=== PATIENT | male | born 1940 | race Caucasian/White ===

== ENCOUNTER → 2017-06-06 | Outpatient (CLI) | payer MEDICARE, OTHER ==
[~2017-06-06] MED LIST: ASPIR 8181 MG PO; BENADRYL25 MG PO; BETA-VAL 0.1% O45 GM TOP; BETAMETHASONE; BUPROPION; CITRIZINE PO; COUMADIN7.5 MG PO; DILAUDID 4 MG TA4 M1 PO; DOLOPHINE HCL10 MG PO; EYE VITAMINS; KETACONAZOLE PO; LAXATIVE5 M1 PO; LEVOTHYROXIN0.125 M1 PO; LISINOPRIL10 MG PO; METHADONE HCL 110 M1 PO; METHADONE HCL5 MG PO; MORPHINE SULFAT15 M3 PO; MOVANTIK25 MG PO; MS CONTIN60 MG PO; MUCOSA400 MG PO; MULTIVITAMINS PO; NIZORAL PO; ORAMORPH SR15 M1; PRINIVIL5 MG PO; PROVENTIL HFA6.7 G1 INH; STOOL SOFTENER1 EAC2 PO; SYNTHROID112 MCG PO; VENTOLIN HFA 1818 GM INH; VOLTAREN GEL 1100 G1 TOP; VOLTAREN GEL 1100 G2 TOP; WELLBUTRIN XL150 M1 PO; XARELTO15 MG PO; XARELTO20 MG PO; prinivil PO
--- NOTE | 2017-06-08 08:15 | PAINCON ---
[facility] [address] [place] [address] PAIN MANAGEMENT CONSULTATION Name: SLATERCALVIN Lenard Room: [facility] NELL Mclain#: [id number] Admission: 06/06/17 Attend Phys: Nathaniel Baugh Discharge: Date of : 38 Report #: [id number] THIS REPORT FOR: //name// CC: Quentin Samayoa HISTORY OF PRESENT ILLNESS: The patient is a 77-year-old gentleman being treated for cervical radiculopathy. He has chronic pain syndrome requiring high risk complex medication management. Last seen approximately 2 months ago, stable on baseline medication including methadone 10 mg t.i.d.; morphine IR 15 mg q. 4 hours, limit 60 tablets for 30 days. He returns to pain clinic today noting he is having trouble losing weight. We did strongly encourage increased physical activity. He feels he is 60 pounds overweight, which is about correct. He is 5 feet 9 inches, 265 pounds, BMI is elevated at 39.2 kilograms per meter squared. He does not use tobacco products. He notes chronic axial back pain remains problematic; pain in hips, knees and ankles. He does have a treadmill at home and again we talked about increasing activity. Suggest he start slow, 5 or 10 minutes twice a day, increasing to a target of 20-30 minutes twice a day. I talked about increasing fluid and decreasing caloric intake. We reviewed the fact that opiate medications are being used to provide analgesia adequate to support activities of daily living, not attempting to achieve a specific pain score on the 0-10 Visual Analog Scale. The current opiate medications are providing sufficient analgesia to allow the patient to participate in activities of daily living. The patient is not exhibiting any aberrant behavior suggestive of drug diversion. The patient is not having any adverse reactions to medications. The patient is not suffering from daytime somnolence or mental acuity changes. The patient is managing opiate-induced constipation with appropriate mfvw-vdj-giupqnc agents and dietary considerations. The patient was counseled on concern for caution with operating a motor vehicle while using opiate medications. A physical exam was performed and the patient's functional status was evaluated. All patients with back pain were advised against the bed rest greater than 4 days and were advised to return to normal activities. Pain score assessment was noted and the treatment plan was reviewed with the patient. All current medications, both prescribed and OTC were reviewed and reconciled on the electronic medical record. Tobacco screening was accomplished and smoking cessation was advised when indicated. BMI was noted and diet/exercise modification was recommended for all patients following outside normal parameters. I reviewed with the patient today their responsibilities to safeguard prescription medications, reviewed their responsibility to utilize medications only as prescribed by the physician. They are to seek and receive pain medications only from 1 physician group ( [facility]). They are to use 1 pharmacy and keep the clinic informed if [place] [address] PAIN MANAGEMENT CONSULTATION Name: CALVIN SLATER V Room: [facility] Mclain#: [id number] Admission: 06/06/17 Attend Phys: Nathaniel Baugh Discharge: Date of : 38 Report #: [id number] responsibilities include making followup visits in a timely fashion and to avoid abrupt discontinuation of medication usage. Their responsibilities further include bringing their medications (bottles from the pharmacy with residual pills) to the visit for possible confirmation of pill counts and the patient understands it is their responsibility to submit to random drug screens to ensure both that the medications prescribed are present, and that no other controlled substances are present. All prescriptions provided today were generated electronically. PHYSICAL EXAMINATION: As noted. Moderately obese gentleman, BMI is 39 kilograms per meter squared. Blood pressure 138/92, pulse 93, respirations 16. Alert and oriented to person, place and time and judged to be a reasonable historian. Rises from chair using armrest. Diffuse axial tenderness in the joints. No discrete palpable edema noted over the knees. Range of motion is slightly limited, modestly antalgic gait, appears to have good balance. ASSESSMENT: Chronic cervical and lumbar radiculopathy, axial back pain requiring high risk complex medication management, stable on baseline medications. RECOMMENDATION: Continue methadone 10 mg t.i.d. and morphine IR 15 mg, limit 60 tablets for 30 days. <ELECTRONICALLY SIGNED> By: Tye Samayoa DO 06/08/17 0815 0837 [facility] Center[facility]ye Samay[facility] DO /nt
== END ==
LOC: M.PC 02:05
DX: G89.4 Chronic pain syndrome (principal); M54.12 Radiculopathy, cervical region; M54.16 Radiculopathy, lumbar region; M54.89 Other dorsalgia; Z79.899 Other long term (current) drug therapy

== ENCOUNTER → 2017-07-04 | Outpatient (CLI) | payer MEDICARE, OTHER ==
--- NOTE | 2017-07-09 07:21 | PAINCON ---
[facility] [address] [place] [address] PAIN MANAGEMENT CONSULTATION Name: CALVIN SLATER V Room: [facility] NELL Mclain#: [id number] Admission: 07/04/17 Attend Phys: Nathaniel Baugh Discharge: Date of : 38 Report #: [id number] THIS REPORT FOR: //name// CC: Quentin Samayoa The patient is a pleasant 77-year-old gentleman being treated for cervical radiculopathy, axial back pain, chronic pain syndrome requiring high risk complex medication management. The patient is moderately obese, BMI of 39.2 kilograms per meter squared (5 feet 9 inches, 263 pounds). Last seen in the pain clinic on 06/06/2017, continued on methadone 10 mg t.i.d. and MSIR 15 mg half to one tablet b.i.d., limit 60 tablets for 30 days. We talked about weight loss at that time. Returns to pain clinic today noting he has increased activity some. He is using his treadmill nearly daily about 15 minutes a day. He does have some "sore and aching" legs and back after this activity. We talked about possibly using an Aleve tzbv-zqh-uadmowl 30 minutes prior to exercise. Otherwise, the patient notes medications are providing sufficient analgesia to participate in activities of daily living. We did today review his opiate consent to treat contract, it has been greater than a year. Physical exam is otherwise unchanged. Blood pressure is 135/96, pulse 98, respirations are 20. Subjective pain score is 5 on a VAS. He does not use tobacco products. He has not fallen in the last 3 months. Again, moderately obese with cervical radicular symptoms and axial back pain. Gait is guarded, but tandem. Diffuse low back pain. Cervical range of motion is moderately limited. No dramatic cervical radicular symptoms noted at this time. We reviewed the fact that opiate medications are being used to provide analgesia adequate to support activities of daily living, not attempting to achieve a specific pain score on the 0-10 Visual Analog Scale. The current opiate medications are providing sufficient analgesia to allow the patient to participate in activities of daily living. The patient is not exhibiting any aberrant behavior suggestive of drug diversion. The patient is not having any adverse reactions to medications. The patient is not suffering from daytime somnolence or mental acuity changes. The patient is managing opiate-induced constipation with appropriate irme-nds-rjkbrrt agents and dietary considerations. The patient was counseled on concern for caution with operating a motor vehicle while using opiate medications. A physical exam was performed and the patient's functional status was evaluated. All patients with back pain were advised against the bed rest greater than 4 days and were advised to return to normal activities. Pain score assessment was noted and the treatment plan was reviewed with the patient. All current medications, both prescribed and OTC were reviewed [place] [address] PAIN MANAGEMENT CONSULTATION Name: CALVIN SLATER V Room: [facility] NELL Mclain#: [id number] Admission: 07/04/17 Attend Phys: Nathaniel Baugh Discharge: Date of : 38 Report #: [id number] electronic medical record. Tobacco screening was accomplished and smoking cessation was advised when indicated. BMI was noted and diet/exercise modification was recommended for all patients following outside normal parameters. I reviewed with the patient today their responsibilities to safeguard prescription medications, reviewed their responsibility to utilize medications only as prescribed by the physician. They are to seek and receive pain medications only from 1 physician group ( [facility]). They are to use 1 pharmacy and keep the clinic informed if they change pharmacies. Their responsibilities include making followup visits in a timely fashion and to avoid abrupt discontinuation of medication usage. Their responsibilities further include bringing their medications (bottles from the pharmacy with residual pills) to the visit for possible confirmation of pill counts and the patient understands it is their responsibility to submit to random drug screens to ensure both that the medications prescribed are present, and that no other controlled substances are present. All prescriptions provided today were generated electronically. ASSESSMENT: Cervical radiculopathy, axial back pain, chronic pain syndrome requiring high risk complex medication management, stable on baseline medication. RECOMMENDATION: Continue methadone 10 mg t.i.d. and MSIR 15 mg half to one tablet b.i.d., limit 60 tablets for 30 days. Opiate consent to treat contract signed today. Discharged in good and stable condition. <ELECTRONICALLY SIGNED> By: Tye Samayoa DO 07/09/17 0721 1450 [id number] Samayoa DO /nt
== END ==
LOC: M.PC 01:40
DX: M54.12 Radiculopathy, cervical region (principal); G89.4 Chronic pain syndrome; M54.89 Other dorsalgia

== ENCOUNTER → 2017-08-01 | Outpatient (CLI) | payer MEDICARE, OTHER ==
--- NOTE | 2017-08-03 07:28 | PAINCON ---
[facility] [address] [place] [address] PAIN MANAGEMENT CONSULTATION Name: CALVIN SLATER V [facility] [id number] Admission: 08/01/17 Attend Phys: Nathaniel Baugh Discharge: Date of : 38 Report #: [id number] THIS REPORT FOR: //name// CC: Quentin Samayoa The patient is a 77-year-old gentleman being treated for axial back pain, cervical radiculopathy and chronic pain syndrome, requiring complex medication management. Last seen in pain clinic on 07/04/2017. He had continued on methadone 10 mg t.i.d. and MSIR 15 mg half to one tablet b.i.d. as needed for pain, limit 60 tablets for 30 days. The patient returns to pain clinic today noting medications are generally providing sufficient analgesia to participate in activities of daily living. He rates his pain anywhere from a 3-7 on a VAS. He notes the pain is primarily generalized back, exacerbated with physical activity. We had trialed Voltaren gel at last visit and this seems to work well, but only for "a few hours." PHYSICAL EXAMINATION: Otherwise unchanged, 5 feet 9 inches, 264 pounds gentleman, BMI is 39.5 kilograms per meter squared. Blood pressure 120/81, pulse 101, respirations 16. Rises from chair using armrest. Diffuse tenderness in the low back. Gait is tandem. Lower extremity strength is diminished, but symmetric. Straight leg raise is negative. The patient does note some problems with constipation, which seems to be getting worse. He has been diligent with stool softeners; appropriate diet with bulk and fluids. We reviewed the fact that opiate medications are being used to provide analgesia adequate to support activities of daily living, not attempting to achieve a specific pain score on the 0-10 Visual Analog Scale. The current opiate medications are providing sufficient analgesia to allow the patient to participate in activities of daily living. The patient is not exhibiting any aberrant behavior suggestive of drug diversion. The patient is not having any adverse reactions to medications. The patient is not suffering from daytime somnolence or mental acuity changes. The patient is managing opiate-induced constipation with appropriate xbrm-zrf-klcxgtk agents and dietary considerations. The patient was counseled on concern for caution with operating a motor vehicle while using opiate medications. A physical exam was performed and the patient's functional status was evaluated. All patients with back pain were advised against the bed rest greater than 4 days and were advised to return to normal activities. Pain score assessment was noted and the treatment plan was reviewed with the patient. All current medications, both prescribed and OTC were reviewed and reconciled on the electronic medical record. Tobacco screening was accomplished and smoking cessation was advised when indicated. BMI was noted and diet/[place] [address] PAIN MANAGEMENT CONSULTATION Name: CALVIN SLATER V [facility] [id number] Admission: 08/01/17 Attend Phys: Nathaniel Baugh Discharge: Date of : 38 Report #: [id number] modification was recommended for all patients following outside normal parameters. I reviewed with the patient today their responsibilities to safeguard prescription medications, reviewed their responsibility to utilize medications only as prescribed by the physician. They are to seek and receive pain medications only from 1 physician group ( [facility]). They are to use 1 pharmacy and keep the clinic informed if they change pharmacies. Their responsibilities include making followup visits in a timely fashion and to avoid abrupt discontinuation of medication usage. Their responsibilities further include bringing their medications (bottles from the pharmacy with residual pills) to the visit for possible confirmation of pill counts and the patient understands it is their responsibility to submit to random drug screens to ensure both that the medications prescribed are present, and that no other controlled substances are present. All prescriptions provided today were generated electronically. ASSESSMENT: Symptomatic axial back pain, cervical radiculopathy by history, chronic pain syndrome, requiring complex medication management with a component of opiate-induced constipation. RECOMMENDATIONS: Continue methadone 10 mg t.i.d.; MSIR 15 mg, limit 60 tablets for 30 days, one half to one tablet b.i.d. for breakthrough pain. Lastly, the patient was given samples of Movantik and a prescription for 25 mg tablets to be used p.r.n. OIC. Follow up in 2 months for reevaluation. <ELECTRONICALLY SIGNED> By: Tye Samayoa DO 08/03/17 0728 1219 [id number] Samayoa DO /nt
== END ==
LOC: M.PC 03:36
DX: M54.12 Radiculopathy, cervical region (principal); G89.4 Chronic pain syndrome; K59.03 Drug induced constipation; Z79.899 Other long term (current) drug therapy

== ENCOUNTER → 2017-08-29 | Outpatient (CLI) | payer MEDICARE, OTHER ==
--- NOTE | 2017-08-31 09:51 | PAINCON ---
[facility] [address] [place] [address] PAIN MANAGEMENT CONSULTATION Name: CALVIN SLATER V [id number] Admission: 08/29/17 Attend Phys: Nathaniel Baugh Discharge: Date of : 38 Report #: [id number] THIS REPORT FOR: //name// CC: Quentin Samayoa The patient is a very pleasant 77-year-old gentleman typically treated for cervical radiculopathy, axial back pain, chronic pain syndrome requiring complex medication management. Component of opiate-induced constipation. Last seen in pain clinic 08/01/2017. Continued on methadone 10 mg t.i.d., MS-IR 15 mg one-half tablet up to 4 times a day. The patient was having some opiate-induced constipation at last visit, we gave him samples of Movantik. He returns to clinic today noting he is actually doing fairly well. He rates his pain quite low today. Chronic axial back pain is better than it has been for some time, though he does note with weather changes, the pain does get a little bit worse. Incidentally, he has some right shoulder pain that is fairly nominal. He does note that the Movantik while efficacious, caused some increasing abdominal cramping and noted that the results were fairly rigorous. He stated he had to be near a toilet the entire next day. He states he is managing his OIC now simply with MiraLax, stool softeners, fluid and fiber. PHYSICAL EXAMINATION: Shows a 77-year-old gentleman, BMI is 39.6 kilograms per meter squared. Blood pressure 158/81, pulse 96, respirations are 16, oxygen saturation is somewhat diminished at 93%. Rises from the chair using armrest. Gait is tandem, a little diffuse tenderness across the low back with pain, subjective pain score is only 1/10. He does have a little subjective pain in the right shoulder, although range of motion strength is good. Lower extremity strength is preserved. We reviewed the fact that opiate medications are being used to provide analgesia adequate to support activities of daily living, not attempting to achieve a specific pain score on the 0-10 Visual Analog Scale. The current opiate medications are providing sufficient analgesia to allow the patient to participate in activities of daily living. The patient is not exhibiting any aberrant behavior suggestive of drug diversion. The patient is not having any adverse reactions to medications. The patient is not suffering from daytime somnolence or mental acuity changes. The patient is managing opiate-induced constipation with appropriate spgf-nmz-niqzato agents and dietary considerations. The patient was counseled on concern for caution with operating a motor vehicle while using opiate medications. A physical exam was performed and the patient's functional status was evaluated. All patients with back pain were advised against the bed rest greater than 4 days and were advised to return to normal activities. Pain score assessment was noted and the treatment plan was reviewed with the patient. All current medications, both prescribed and OTC were reviewed and reconciled on the electronic medical record. Tobacco screening was accomplished and smoking cessation was advised when indicated. BMI was noted and diet/exercise [facility] [address] [place] [address] PAIN MANAGEMENT CONSULTATION Name: SLATERCALVIN Lenard Room: [facility] NELL Mclain#: [id number] Admission: 08/29/17 Attend Phys: Nathaniel Baugh Discharge: Date of : 38 Report #: [id number] modification was recommended for all patients following outside normal parameters. I reviewed with the patient today their responsibilities to safeguard prescription medications, reviewed their responsibility to utilize medications only as prescribed by the physician. They are to seek and receive pain medications only from 1 physician group ( [facility]). They are to use 1 pharmacy and keep the clinic informed if they change pharmacies. Their responsibilities include making followup visits in a timely fashion and to avoid abrupt discontinuation of medication usage. Their responsibilities further include bringing their medications (bottles from the pharmacy with residual pills) to the visit for possible confirmation of pill counts and the patient understands it is their responsibility to submit to random drug screens to ensure both that the medications prescribed are present, and that no other controlled substances are present. All prescriptions provided today were generated electronically. ASSESSMENT: Cervical radiculopathy by history, axial back pain, chronic pain syndrome requiring complex medication management, stable on baseline medication. RECOMMENDATION: We will renew methadone 10 mg t.i.d., MS-IR 15 mg one-half tablet 4 times a day, limit 60 tablets for 30 days. Follow up in 30 days for reevaluation. <ELECTRONICALLY SIGNED> By: Tye Samayoa DO 08/31/17 0951 1515 [id number] Samayoa DO /nt
== END ==
LOC: M.PC 02:30
DX: M54.12 Radiculopathy, cervical region (principal); M54.5 Low back pain; G89.4 Chronic pain syndrome; Z79.899 Other long term (current) drug therapy

== ENCOUNTER → 2017-09-26 | Outpatient (CLI) | payer MEDICARE, OTHER ==
--- NOTE | 2017-09-27 09:37 | PAINCON ---
[facility] [address] [place] [address] PAIN MANAGEMENT CONSULTATION Name: CALVIN SLATER V Room: [facility] Chemo#: [id number] Admission: 09/26/17 Attend Phys: Nathanile Baugh Discharge: Date of : 38 Report #: [id number] THIS REPORT FOR: //name// CC: Quentin Samayoa DATE OF SERVICE: 09/26/2017 The patient is a very pleasant 77-year-old gentleman whose care I took over from Dr. Fernández in June 2016. The patient has been stable on baseline medication including methadone 10 mg t.i.d. and MSIR 15 mg prior 3 and now down to 2 a day. We have tried Movantik for opiate-induced constipation and diclofenac sodium gel for topical arthritic concerns. The patient has symptomatic cervical radiculopathy, DJD, osteoarthritis affecting hips and knees, chronic pain syndrome requiring complex medication management. Comorbidities include hypertension and DVT, on Xarelto. Last visit, 08/29/2017 continued the patient on baseline medications. The patient returns today noting subjective pain score, is 1 on a VAS. He did take a fall 2 weeks ago. He was carrying plastic chair, he slipped in some grass and the chair did hit him in the right ribs. He did not see the ER. PHYSICAL EXAMINATION: Today shows 5 feet 9 inches, 259 pounds gentleman, BMI is elevated at 38.4 kilograms per meter squared. Room air oxygen saturation is 96%, respirations 16, blood pressure is 130/79, pulse 99. Cranial nerves 2-12 are grossly intact. He is alert and oriented to person, place and time, judged to be a reasonable historian. Some mild tenderness over the right ribs, though AP compression and lateral compression does not exacerbate significant pain. Hence, I am less concerned about occult rib fracture. Rises from chair using armrest, tenderness in his hips and knees. Modestly antalgic gait. Lumbar flexion is limited. Lower extremity strength is generally preserved. We reviewed the fact that opiate medications are being used to provide analgesia adequate to support activities of daily living, not attempting to achieve a specific pain score on the 0-10 Visual Analog Scale. The current opiate medications are providing sufficient analgesia to allow the patient to participate in activities of daily living. The patient is not exhibiting any aberrant behavior suggestive of drug diversion. The patient is not having any adverse reactions to medications. The patient is not suffering from daytime somnolence or mental acuity changes. The patient is managing opiate-induced constipation with appropriate [id number] agents and dietary considerations. The patient was counseled on concern for caution with operating a motor vehicle while using opiate medications. A physical exam was performed and the patient's functional status was evaluated. All patients with back pain were advised against the bed rest greater than [address] [place] [address] PAIN MANAGEMENT CONSULTATION Name: BRYONCALVIN Weinberg Room: [facility]#: [id number] Admission: 09/26/17 Attend Phys: Nathaniel Baugh Discharge: Date of : 38 Report #: [id number] days and were advised to return to normal activities. Pain score assessment was noted and the treatment plan was reviewed with the patient. All current medications, both prescribed and OTC were reviewed and reconciled on the electronic medical record. Tobacco screening was accomplished and smoking cessation was advised when indicated. BMI was noted and diet/exercise modification was recommended for all patients following outside normal parameters. I reviewed with the patient today their responsibilities to safeguard prescription medications, reviewed their responsibility to utilize medications only as prescribed by the physician. They are to seek and receive pain medications only from 1 physician group ( [facility]). They are to use 1 pharmacy and keep the clinic informed if they change pharmacies. Their responsibilities include making followup visits in a timely fashion and to avoid abrupt discontinuation of medication usage. Their responsibilities further include bringing their medications (bottles from the pharmacy with residual pills) to the visit for possible confirmation of pill counts and the patient understands it is their responsibility to submit to random drug screens to ensure both that the medications prescribed are present, and that no other controlled substances are present. All prescriptions provided today were generated electronically. ASSESSMENT: Axial back pain, osteoarthritis affecting hips and knees, chronic pain requiring complex medication management, stable on baseline medication. RECOMMENDATION: Continue MSIR 15 mg 1/2-1 tablet b.i.d., limit #60 tablets for 30 days, continue methadone 10 mg t.i.d. for basal analgesia, Voltaren gel topically, Movantik for OIC. Follow up in 1 month. On reviewing the patient's chart, I note there is no recent random drug screen. We will endeavor to get a buccal swab at next visit. Certainly, no aberrant behaviors suggestive for drug diversion, simply complying with our opiate consent to treat contract. <ELECTRONICALLY SIGNED> By: Tye Samayoa DO 09/27/17 0937 [id number] Samayoa DO /nt
== END ==
LOC: M.PC 04:40
DX: M17.0 Bilateral primary osteoarthritis of knee (principal); M19.042 Primary osteoarthritis, left hand; M19.041 Primary osteoarthritis, right hand; G89.29 Other chronic pain; M54.9 Dorsalgia, unspecified; Z79.899 Other long term (current) drug therapy

== ENCOUNTER → 2017-11-21 | Outpatient (CLI) | payer MEDICARE, OTHER ==
--- NOTE | 2017-11-22 07:56 | PAINCON ---
[facility] [address] [place] [address] PAIN MANAGEMENT CONSULTATION Name: SLATERCALVIN Lenard Room: [facility] Chemo#: [id number] Admission: 11/21/17 Attend Phys: Nathaniel Baugh Discharge: Date of : 38 Report #: [id number] THIS REPORT FOR: //name// CC: Quentin Samayoa DATE OF SERVICE: 11/21/2017 The patient is a very pleasant 77-year-old gentleman being treated for cervical radiculopathy, component of DJD, arthritis affecting hips and knees requiring complex medication management. He has been stable for quite some time on methadone 10 mg t.i.d., MSIR 15 mg b.i.d. Equates to approximately 150 mg morphine equivalent. We talked about weaning over time. He has been again remarkably stable on these medications. No problems with daytime somnolence, mental acuity changes or constipation. Rates pain at 2 on a VAS. Reviewing the chart, I noticed there was no random drug screens. We did get a buccal swab today. The patient does chew tobacco products. The test should be positive for methadone, morphine, a tablet along with nicotine. He was counseled regarding smoking cessation. I strongly encouraged to continue physical activity. With generalized joint pain, his functional status is modestly limited. PHYSICAL EXAMINATION: He is a little obese at 5 feet 9 inches, 256 pounds, BMI is 38.1 kilograms per meter squared. Blood pressure 113/84, pulse 92, respirations 18. Alert and oriented to person, place and time, judged to be a reasonable historian. Rises from chair using the armrest, modestly antalgic gait, though gait is tandem and nonataxic. ASSESSMENT: Chronic axial back pain, osteoarthritis affecting hips and knees requiring complex medication management. RECOMMENDATION: Continue methadone 10 mg, typically uses 1 in the morning, 1/2 in the afternoon and 1-1/2 at bedtime. Encourage him to try and decrease to 1/2 tablet at bedtime if able. Continue morphine 15 mg max of 2 a day for breakthrough pain. Continue Movantik 25 mg on a p.r.n. basis for opiate-induced constipation. The patient notes that he uses on a daily basis. He has somewhat liquid stools. Follow up in 2 months for reevaluation. <ELECTRONICALLY SIGNED> By: Tye Samayoa DO 11/22/17 0756 1303 1939Tye Samayoa DO /nt
== END ==
LOC: M.PC 04:15
DX: M54.5 Low back pain (principal); M13.852 Other specified arthritis, left hip; M13.851 Other specified arthritis, right hip; M13.862 Other specified arthritis, left knee; M13.861 Other specified arthritis, right knee; G89.29 Other chronic pain; Z79.899 Other long term (current) drug therapy

== ENCOUNTER → 2018-01-17 | Outpatient (CLI) | payer MEDICARE, OTHER ==
--- NOTE | 2018-02-08 17:38 | PAINCON ---
[address] [address] PAIN MANAGEMENT CONSULTATION Name: BRYONCALVIN Lenard Room: [facility] NELL Mclain#: [id number] Admission: 01/17/18 Attend Phys: Alexia Thomas MD Discharge: Date of : 38 Report #: [id number] THIS REPORT FOR: //name// CC: Quentin Thomas DATE OF SERVICE: 01/17/2018 CHIEF COMPLAINT: Generalized joint pain. FOLLOWUP HISTORY: The patient is a 77-year-old gentleman who has returned to the Pain Clinic today. He has had pain for a number of years. He has seen a number of doctors in the Pain Clinic. He was seen by Dr. Shorty Fernández in the past as well as Dr. Tye Samayoa. This is my first visit with the patient. He is complaining of pain and discomfort in his right hand. He feels like it is more swollen and painful. Pain continues to increase in his left hip as well as in his ankle. He has returned to the Pain Clinic for renewal of his medications. Finds that methadone and morphine are helpful. He is a very pleasant 77-year-old gentleman who has been treated for cervical radiculopathy, degenerative joint disease, arthritis affecting his hips and knees, which have required complex medical management. He has been able to do quite well for some time on methadone 10 mg as well as morphine. He has been remarkably stable on his current medical regimen. He does not have any problems with daytime somnolence. Mental acuity remains good. He feels that he is not having significant bowel or bladder problems with the use of his medications. ALLERGIES: No known drug allergies. CURRENT MEDICATIONS: Albuterol 2 puffs q.i.d., aspirin 81 mg, laxative bisacodyl, Voltaren gel 1% to upper extremities 1 inch to hands as directed, Benadryl 25 mg at bedtime, Synthroid 0.125 mg, lisinopril 10 mg, methadone 10 mg 1 tablet a.m., 1/2 tablet afternoon and 1 tablet at bedtime, morphine 15 mg IR for severe breakthrough pain only, Movantik 25 mg, Sennosides/Docusate. PAST MEDICAL HISTORY: Hypertension, hypothyroidism, joint disease/arthritis. PAST SURGICAL HISTORY: Appendectomy in 2011, tonsillectomy in 1956, left knee replacement in 1999. SOCIAL HISTORY: He has been retired since 1998. REVIEW OF SYSTEMS: Ringing in the ears, hearing loss, gets up to urinate at night, joint pain, joint stiffness, weakness of joints, back pain, rash, itching, skin color changes, varicose veins, and depression. LABORATORY DATA: No new laboratory values at the time [place] [address] PAIN MANAGEMENT CONSULTATION Name: CALVIN SLATER V Room: [facility]#: [id number] Admission: 01/17/18 Attend Phys: Alexia Thomas MD Discharge: Date of : 38 Report #: [id number] of the knees dated 10/23/2013, there is a left total knee arthroplasty with anatomical alignment. No fractures, dislocations or findings to suggest hardware loosening. MRI of the cervical spine dated 06/2011. IMPRESSION: Cervical spondylosis with posterior ridging and stenosis with neural foraminal narrowing at multiple levels. AP diameter of the canal is moderately narrowed at C6-C7. A 9.4 mm asymmetric ridging is seen with neural foraminal narrowing, greater on the right at C3-C4. PAIN CLINIC ASSESSMENT: 1. History of osteoarthritis in the left knee with arthroplasty. 2. Height 5 feet 9, weight 256 pounds, BMI is 37.9. 3. Vital signs: Blood pressure 133/90, heart rate 91, respiratory rate 18, room air saturation 93%, temperature 98.5. 5. Pain score 6/10, oftentimes is 2-3. 6. Fall risk. The patient has not fallen in the last 3 months. 7. Blood thinner. The patient is not on a blood thinning medication. 8. Hypertension. The patient is being treated for hypertension. 9. Opioid medicines greater than 6 weeks. The patient is receiving medications through the Pain Clinic for his pain control. 10. Risk assessment tool. 11. Functional assessment tool. 12. Recreational drug use. The patient denies use of recreational drugs. 13. Tobacco: The patient is not smoking. He does chew tobacco. 14. Alcohol: The patient denies frequent use of alcoholic beverages has left heel and left hip pain, some left knee discomfort. PHYSICAL EXAMINATION: GENERAL: The patient is a well-developed, well-nourished white male. Appears his stated age. He is alert and oriented x 3. Affect is appropriate. Speech is fluent. HEENT: Normocephalic, atraumatic. Extraocular eye muscles intact. The patient is wearing glasses. Sclerae nonicteric. Mucous membranes are moist. NECK: Without JVD or adenopathy. HEART: Regular. CHEST: Clear without rhonchi or rales. ABDOMEN: Nontender. EXTREMITIES: Upper extremity muscle strength is judged to be 4+/5 for the major muscle groups. Lower extremities muscle strength is judged to be 5- for the major muscle groups in the lower extremity. The patient has some pain and discomfort in his left heel as well as in the left hip. IMPRESSION: 1. Cervical radiculopathy. 2. Multilevel degenerative disk disease of the cervical spine with disk bulging causing significant multilevel central spinal stenosis and bilateral multilevel [facility] [address] [place] [address] PAIN MANAGEMENT CONSULTATION Name: BRYONCALVIN Lenard Room: [facility]#: [id number] Admission: 01/17/18 Attend Phys: Alexia Thomas MD Discharge: Date of : 38 Report #: [id number] recess and neural foraminal stenosis of the lumbar spine. 3. Multilevel degenerative facet osteoarthropathy of the cervical spine. 4. Hypothyroidism. 5. Eczema. 6. Degenerative osteoarthritis. 7. History of gout. 8. Remote shingles. 9. Status post left total knee replacement. RECOMMENDATIONS: We discussed treatment options with the patient. At this juncture, he has been doing reasonably well with his current medical regimen. We will continue with the regimen Dr. Samayoa has him on at this point. We will make adjustments in the future as needed. We would like to thank you for letting us participate in his care. We hope he continues to improve. <ELECTRONICALLY SIGNED> By: Alexia Thomas MD 02/08/18 1738 1547 [id number]. Piter Thomas MD /nt
== END ==
LOC: M.PC 05:00
DX: M47.22 Other spondylosis with radiculopathy, cervical region (principal); M50.123 Cervical disc disorder at C6-C7 level with radiculopathy; M48.02 Spinal stenosis, cervical region; E03.9 Hypothyroidism, unspecified; L30.9 Dermatitis, unspecified; B02.9 Zoster without complications; Z96.652 Presence of left artificial knee joint

== ENCOUNTER → 2018-03-14 | Outpatient (CLI) | payer MEDICARE, OTHER ==
--- NOTE | 2018-03-18 10:00 | PAINCON ---
[address] [address] PAIN MANAGEMENT CONSULTATION Name: SLATERCALVIN Lenard Room: [facility] NELL MartínezPrasad#: [id number] Admission: 03/14/18 Attend Phys: Alexia Thomas MD Discharge: Date of : 38 Report #: [id number] THIS REPORT FOR: //name// CC: Quentin Thomas DATE OF SERVICE: 03/14/2018 CHIEF COMPLAINT: Joint pain and cervical radicular pain. FOLLOWUP HISTORY: The patient is a 77-year-old gentleman who has been followed in the Pain Clinic. He has a history of pain and discomfort involving his right hand. Feels like his hand is swollen. Also, notes some increased pain in his hip and in his ankle. He finds that use of methadone and morphine have continued to be helpful. He has also been treated for cervical radiculopathy and degenerative joint disease. Notes pain and arthritis affecting his hips, knees and has been treated with complex medical management because of these problems. He has been stable on the medications. His mental acuity remains adequate. He finds that use of Voltaren gel on his hand can be beneficial. He has no specific pain, which is more problematic today and has a continued generalized body pain. Rates his pain as a 2/10. He feels that his medications of morphine, methadone, Voltaren and Movantik are been helpful. They provide him about 80% pain relief and he would like to continue with their use. ALLERGIES: No known drug allergies. MEDICATIONS: Albuterol 2 puffs q.i.d., aspirin 81 mg, laxative bisacodyl, Voltaren gel 1% to upper extremity 1 inch to hand as directed, Benadryl 25 mg at bedtime, Synthroid 0.125 mg, lisinopril 10 mg, methadone 10 mg a.m., one-half tablet afternoon and 1 tablet at bedtime, morphine 15 mg IR for severe breakthrough pain only. Movantik 25 mg, Sennosides/Docusate. PAIN CLINIC ASSESSMENT: 1. History of osteoarthritis in his left knee and arthroplasty. This patient has not been treated for rheumatoid arthritis. 2. Height 5 feet 9 inches, weight 258 pounds, BMI is 38.1. 3. Vital signs: Blood pressure 134/88, heart rate 91, respiratory rate 16, room air saturation 93%, temperature 98.4. 4. Pain intensity 07/14. 5. Fall risk. The patient has not fallen in the last 3 months. 6. Blood thinner. The patient is not on a blood thinning medication. 7. Hypertension. The patient is being treated for hypertension. 8. Opioid greater than 6 weeks. The patient receives this medication from one source, the Pain Clinic. 9. Risk assessment tool. 10. [place] [address] PAIN MANAGEMENT CONSULTATION Name: SLATERCALVIN Lenard Room: [facility]#: [id number] Admission: 03/14/18 Attend Phys: Alexia Thomas MD Discharge: Date of : 38 Report #: [id number] 11. Recreational drug use. The patient denies use of recreational drugs. 12. Tobacco: The patient is not smoking, but he does chew tobacco. We discussed the problems associated with tobacco use. He stopped smoking in 1981 and is continued with the smokeless tobacco. Does drink alcoholic beverages about once a week. PHYSICAL EXAMINATION: GENERAL: The patient is a well-developed, well-nourished white male. Appears his stated age. He is alert and oriented x 3. Affect is appropriate. Speech is fluent. HEENT: Normocephalic, atraumatic. Extraocular eye muscles intact. Sclerae nonicteric. Mucous membranes are moist. Hearing is generally within normal limits. NECK: Without adenopathy or JVD. HEART: Regular rate. S1, S2. LUNGS: Clear to auscultation without rhonchi or rales. ABDOMEN: Nontender. EXTREMITIES: Upper extremity muscle strength is judged to be 4/5 for the major muscle groups. Lower extremity muscle strength 5-/5 for the major muscle groups. The patient does have some pain and discomfort in his heels. He has pain and discomfort in his knees, ankles as well as in his ____. IMPRESSION: 1. History of cervical radiculopathy. Multilevel degenerative disk disease of the cervical spine with disk bulging causing significant multilevel central spinal stenosis and bilateral multilevel recesses and neural foraminal stenosis of the lumbar spine. 2. Multilevel degenerative facet arthropathy of the cervical spine. 3. Hypothyroidism. 4. Eczema. 5. Degenerative osteoarthritis. 6. History of gout. 7. Remote shingles. 8. Status post left total knee replacement. RECOMMENDATIONS: We discussed treatment options with the patient. At this juncture, he feels his medications morphine, methadone and Voltaren gel are helpful. We will renew these medications. A script for the medication has been written. The patient will call us if he has any problems with his medications. We would like to thank you for letting us participate in his care. We hope he continues to do well. He will call us if he has any concerns. <ELECTRONICALLY SIGNED> By: Alexia Thomas MD 03/18/18 1000 [id number]. Piter Thomas MD /iftikhar
== END ==
LOC: M.PC 05:17
DX: M54.12 Radiculopathy, cervical region (principal); E03.9 Hypothyroidism, unspecified; L30.9 Dermatitis, unspecified; M19.90 Unspecified osteoarthritis, unspecified site; M10.9 Gout, unspecified; B02.9 Zoster without complications; Z96.652 Presence of left artificial knee joint

== ENCOUNTER → 2018-05-09 | Outpatient (CLI) | payer MEDICARE, OTHER ==
--- NOTE | 2018-05-10 17:20 | PAINCON ---
[address] [address] PAIN MANAGEMENT CONSULTATION Name: CALVIN SLATER V Room: [facility] NE[facility] Mclain#: [id number] Admission: 05/09/18 Attend Phys: Alexia Thomas MD Discharge: Date of : 38 Report #: [id number] THIS REPORT FOR: //name// CC: Quentin Thomas DATE OF SERVICE: 05/09/2018 FOLLOWUP COMPLAINT: Generalized pain, pain is better. FOLLOWUP HISTORY: The patient is a 77-year-old gentleman who has been seen in the pain clinic because of cervical radiculopathy. He has a history of cervical pain and discomfort involving his right hand. Sometimes he notes that his hand has felt like it was swollen. He has also had some pain and discomfort in his hip as well as his ankle. He finds that use of methadone and morphine are beneficial. He feels that his situation remains reasonably stable. He does not have any problems with alteration of his sensorium. He feels that his medications leave him thinking clearly. Has used Voltaren and finds it is beneficial on his affected hand. He feels that his pain medications are continued to be working reasonably well. Rates his pain as a 1/10 at this point. Would like to continue with his methadone, morphine, and Voltaren and has found Movantik helpful with regards to constipation. ALLERGIES: No known drug allergies. MEDICATIONS: Albuterol 2 puffs q.i.d., aspirin 81 mg, laxative bisacodyl, Voltaren 1% gel to the upper extremity as directed, four times daily, Benadryl 25 mg at bedtime, Synthroid 0.125 mg, lisinopril 10 mg, methadone 10 mg q.a.m., one half tablet afternoon and 1 tablet at bedtime, morphine 15 mg IR for severe breakthrough pain only. Movantik 25 mg, and Sennosides/Docusate. PAIN CLINIC ASSESSMENT AND PQRS: 1. History of osteoarthritis in his left knee and has had an arthroplasty. The patient is not being treated for rheumatoid arthritis. 2. Height 5 feet 9 inches, weight 256 pounds, BMI is 38. 3. Vital signs: Blood pressure 140/100, heart rate 89, respiratory rate 18, room air saturation 92%, temperature 98.6. 4. Pain intensity 06/13. 5. Fall risk. The patient has not fallen in the last 3 months. 6. Blood thinner. The patient is not on a blood thinning medication. 7. Hypertension. The patient is being treated for hypertension. 8. Opioids greater than 6 weeks. The patient receives his medications from one source, pain clinic. 9. Risk assessment tool, low for opioids. 10. Functional assessment tool. 11. Recreational drug use. The patient [place] [address] PAIN MANAGEMENT CONSULTATION Name: CALVIN SLATER V Room: [facility]#: [id number] Admission: 05/09/18 Attend Phys: Alexia Thomas MD Discharge: Date of : 38 Report #: [id number] 12. Tobacco: The patient is not smoking. Does not chew tobacco. Discussed ____ chewing tobacco and its cessation. 13. Alcohol, the patient drinks alcohol beverage about once a week. PHYSICAL EXAMINATION: GENERAL: The patient is well-developed, well nourished male, who appears his stated age. He is alert and oriented x 3. His affect is appropriate. Speech is fluent. HEENT: Normocephalic, atraumatic. Extraocular eye muscles intact. Sclerae nonicteric. Mucous membranes are moist. Hearing is within normal limits. NECK: Without adenopathy or JVD. HEART: Regular rate. S1, S2. LUNGS: Clear to auscultation without rhonchi or rales. ABDOMEN: Nontender. Bowel sounds present. EXTREMITIES: Upper muscle strength judged to be 4/5 for the major muscle groups. The patient has some swelling in his right hand. Lower extremity muscle strength, 5-/5 for the major muscle groups. The patient has some pain and discomfort in his heel. Has some discomfort in his knees and ankles as well. IMPRESSION: 1. History of cervical radiculopathy - multilevel degenerative disk disease of the cervical spine with disk bulging causing significant multilevel central spinal stenosis and bilateral multilevel recesses and neural foraminal stenosis of the lumbar spine. 2. Multilevel degenerative facet arthropathy of the cervical spine. 3. Hypothyroidism. 4. Eczema. 5. Degenerative arthritis. 6. History of gout. 7. Remote shingles. 8. Status post left total knee replacement. RECOMMENDATIONS: We discussed treatment options with the patient. Overall, he feels things are going reasonably well. He is able to engage in activities that he would like to. States that he and his often go to the movies with tickets provided by their family member. Also, he likes to eat hamburgers at [employer]. Goes to other eating establishments. Overall things are going reasonably well. He would like to have his medications renewed. A script for MS Contin 15 mg 1 p.o. b.i.d. and methadone 10 mg 1 a.m., one half in noon and 1 in the evening have been written. The patient will call if he has any concerns. [facility] [address] [place] [address] PAIN MANAGEMENT CONSULTATION Name: CALVIN SLATER V Room: [facility] Mclain#: [id number] Admission: 05/09/18 Attend Phys: Alexia Thomas MD Discharge: Date of : 38 Report #: [id number] We would like to thank you for letting us participate in his care. We hope he continues to improve. <ELECTRONICALLY SIGNED> By: Alexia Thomas MD 05/10/18 1720 1606 [id number]. Piter Thomas MD /nt
== END ==
LOC: M.PC 04:41
DX: M50.10 Cervical disc disorder with radiculopathy, unspecified cervical region (principal); M48.02 Spinal stenosis, cervical region; M19.90 Unspecified osteoarthritis, unspecified site; E03.9 Hypothyroidism, unspecified; L30.9 Dermatitis, unspecified; B02.9 Zoster without complications; Z96.652 Presence of left artificial knee joint; Z87.39 Personal history of other diseases of the musculoskeletal system and connective tissue

== ENCOUNTER → 2018-07-04 | Outpatient (CLI) | payer MEDICARE, OTHER ==
--- NOTE | ~2018-07-04 | PAINCON ---
[address] [address] PAIN MANAGEMENT CONSULTATION Name: CALVIN SLATER V Room: [facility] Mclain#: [id number] Admission: 07/04/18 Attend Phys: Alexia Thomas MD Discharge: Date of : 38 Report #: [id number] THIS REPORT FOR: //name// CC: Quentin Thomas DATE OF SERVICE: 07/04/2018 FOLLOWUP HISTORY: The patient is an 78-year-old gentleman who has been followed in the pain clinic. As you recall, he has some problems involving his right shoulder. Has a history of cervical pain. In the past, he has undergone cervical epidural steroid injections and gleaned benefits from these. He has had some pain involving the right side. Noted that there had been some swelling in his joint. At this point, he feels that his right shoulder is doing relatively well. Temperature has been extremely cold outside, today is high was 7 degrees. He feels that the cold weather may have provided some benefit. He rates his pain as 0 at this time. Feels that the morphine, methadone continue to be beneficial. He would like to have his medications renewed. Does not have any problems with mentation. Keeps his medications in a guarded area. Has used Voltaren. I am not sure that it has been very beneficial in his upper shoulder. At this juncture, he does not feel he needs another refill because he has some medication at home. The patient has used stool softeners to help limit constipation. ALLERGIES: No known drug allergies. CURRENT MEDICATIONS: Albuterol 2 puffs q.i.d., aspirin 81 mg, laxative bisacodyl, use of Voltaren gel to the upper extremity 4 times daily as directed, Benadryl 25 mg at bedtime, Synthroid 0.125 mg, lisinopril 10 mg, methadone 10 mg q.a.m., one-half tablet afternoon and 1 tablet at bedtime, morphine 15 mg IR for severe breakthrough pain only, Movantik 25 mg, Sennosides/Docusate. PAIN CLINIC ASSESSMENT/PQRS: 1. The patient has some pain, arthritic change in his left knee as well as some pain in the right shoulder. He is not being treated for rheumatoid arthritis. 2. Height 5 feet 9 inches, weight 257 pounds, BMI is 38. 3. Vital signs: Blood pressure 151/90, heart rate 101, respiratory rate 16, room air saturation 95%, temperature 98.5. 4. Pain intensity is 0/10. 5. Fall history: The patient has not fallen in the last 3 months. 6. Blood thinner: The patient is not on a blood thinning medication. 7. Opioids. The [facility] and takes them as prescribed. 8. Risk assessment tool, low for opioid use. 9. Functional assessment tool. 10. Recreational drug use. The patient [place] [address] PAIN MANAGEMENT CONSULTATION Name: CALVIN SLATER V Room: [facility] Mclain#: [id number] Admission: 07/04/18 Attend Phys: Alexia Thomas MD Discharge: Date of : 38 Report #: [id number] 11. Tobacco: The patient does not smoke. The patient chews tobacco. 12. Alcohol: The patient denies alcoholic use more than once a week. PHYSICAL EXAMINATION: GENERAL: The patient is a well-developed, well-nourished white male. Appears his stated age. He is alert and oriented x 3. His affect is appropriate. Speech is fluent. HEAD, EYES, EARS, NOSE, AND THROAT: Normocephalic, atraumatic. Extraocular eye muscles intact. Sclerae nonicteric. Mucous membranes are moist. NECK: Without adenopathy or JVD. HEART: Regular rate. LUNGS: Clear to auscultation without rhonchi or rales. ABDOMEN: Protuberant. Bowel sounds present. EXTREMITIES: Upper extremity muscle strength is judged to be 4/5 for the right side. The patient has some pain in the lower portion of his back. Rates his pain in lower extremities as 5-/5. Has had some pain down in the heel of his foot. Some discomfort in his knees and ankles as well. IMPRESSION: 1. History of cervical radiculopathy -- multilevel degenerative disk disease of the cervical spine with disk bulging causing significant multilevel central spinal stenosis and bilateral multilevel recesses and neural foraminal stenosis of the upper lumbar spine, multivitamins level degenerative facet arthropathy of the cervical spine. 2. Hypothyroidism. 3. Eczema. 4. Degenerative arthritis. 5. History of gout. 6. Remote shingles. 7. Status post left total knee replacement. RECOMMENDATIONS: We discussed treatment options with the patient. At this juncture, he feels his medications are working relatively well. Rates his pain as zero today. Feels that the cold weather may be beneficial. He may continue to use cold on the right shoulder, which is somewhat problematic at times. He feels that his medications are working reasonably well. He has had no complication with him. He would like to continue with the morphine. Continues to take medications to promote good bowel movements. He will call us if he has any concerns. We would like to thank you for letting us to participate in his care. We hope he continues to improve. By: [id number]. Piter Thomas MD /PMT
== END ==
LOC: M.PC 11:00
DX: M54.12 Radiculopathy, cervical region (principal); E03.9 Hypothyroidism, unspecified; M10.9 Gout, unspecified; B02.9 Zoster without complications; M19.90 Unspecified osteoarthritis, unspecified site; L30.9 Dermatitis, unspecified; Z96.652 Presence of left artificial knee joint

== ENCOUNTER → 2018-08-29 | Outpatient (CLI) | payer MEDICARE, OTHER ==
--- NOTE | ~2018-08-29 | PAINCON ---
[address] [address] PAIN MANAGEMENT CONSULTATION Name: SLATERCALVIN Lenard Room: [facility] Mclain#: [id number] Admission: 08/29/18 Attend Phys: Alexia Thomas MD Discharge: Date of : 38 Report #: [id number] THIS REPORT FOR: //name// CC: Quentin Avalos DATE OF SERVICE: 08/29/2018 CHIEF COMPLAINT: Neck pain. FOLLOWUP HISTORY: The patient is an 78-year-old gentleman who has been followed in the pain clinic. He has had problems with his shoulders. He does have history of cervical pain. He has undergone epidural steroid injections in the past. These have been helpful. Today, he rates his pain as a 4/10. Overall, he feels that things are going reasonably well. He did have some increased discomfort because of sleeplessness. He is not having difficulty sleeping because of pain. He has returned today for renew of his medication. Overall, he feels things are improving. The weather is improving. Today is more spring like. He feels that his medications are working reasonably well. There is no problem with mentation. He has returned today for renewal of those medications. ALLERGIES: No known drug allergies. CURRENT MEDICATIONS: Albuterol 2 puffs q.i.d., aspirin 81 mg, laxative, bisacodyl, Voltaren gel in the upper extremity 4 times daily, Benadryl 25 mg at bedtime, Synthroid 0.125 mg, lisinopril 10 mg, methadone 10 mg q.a.m., one half tablet afternoon and 1 tablet at bedtime, morphine 15 mg IR for severe breakthrough pain, Movantik 25 mg, Sennosides/docusate. PAIN CLINIC ASSESSMENT/PQRS: 1. The patient has some pain and discomfort in the left knee as well as some in his shoulder. The patient has not been treated for rheumatoid arthritis. States he has some arthritic changes in his left arm. 2. Height 5 feet 9 inches, weight 259 pounds, BMI is 38.6. 3. Vital signs: Blood pressure 141/87, respiratory rate 16, heart rate 91, saturation 93%, temperature 98.3. 4. Pain score 4/10. 5. Fall history: The patient has not fallen in the last 3 months. 6. Blood thinner. The patient is not on a blood thinning medication. 7. Hypertension. The patient is being treated for hypertension. 8. Opioid greater than 6 weeks. The patient [facility]. 9. Risk assessment tool, low for opioid use. 10. Functional assessment tool. 11. Recreational drug use. The patient denies [place] [address] PAIN MANAGEMENT CONSULTATION Name: CALVIN SLATER V Room: [facility]#: [id number] Admission: 08/29/18 Attend Phys: Alexia Thomas MD Discharge: Date of : 38 Report #: [id number] 12. Tobacco: The patient denies use of tobacco. 13. Alcohol. The patient drinks alcoholic beverage weekly. PHYSICAL EXAMINATION: GENERAL: The patient is a well-developed, well-nourished white male. Appears his stated age. He is alert and oriented x 3. His affect is appropriate. Speech is fluent. HEENT: Normocephalic, atraumatic. Extraocular eye muscles intact. Sclerae nonicteric. Mucous membranes are moist. NECK: Without adenopathy or JVD. HEART: Regular rate. LUNGS: Clear to auscultation without rhonchi or rales. ABDOMEN: Protuberant. Bowel sounds present. EXTREMITIES: Upper extremity muscle strength is judged to be 4/5 for the right side. The patient has some pain and discomfort in lower portion of the neck and shoulder area. Lower extremity muscle strength is judged to be 5-/5 for the major muscle groups of lower extremity. The patient has some pain down into his foot. He walks with a slight slow gait with a somewhat forward lean. IMPRESSION: 1. History of cervical radiculopathy -- multilevel degenerative disk disease with spinal disk bulging causing significant multilevel spinal stenosis and bilateral multilevel recesses and neural foraminal stenosis of the upper lumbar spine. 2. Hypothyroidism. 3. Eczema. 4. Degenerative arthritis. 5. History of gout. 6. Remote shingles. 7. Status post left total knee replacement. RECOMMENDATIONS: We discussed treatment options with the patient. Overall, he feels his things are going reasonably well. He is keeping his medications in a guarded area. He feels that this medication enables him to engage in activities he would not be able to without their use. Overall, feels about 80% improved with his current medical regimen and he would like to continue. A script for methadone 10 mg 1 p.o. t.i.d., morphine immediate release 15 mg 1 p.o. b.i.d. have been provided. The patient will call us if he has any concerns. We would like to thank you for letting us participate in his care. We hope he continues to improve. By: 1202 [id number]. Piter Thomas MD /MATHEUS
== END ==
LOC: M.PC 00:43
DX: M50.10 Cervical disc disorder with radiculopathy, unspecified cervical region (principal); M48.02 Spinal stenosis, cervical region; M48.061 Spinal stenosis, lumbar region without neurogenic claudication; E03.9 Hypothyroidism, unspecified; M19.90 Unspecified osteoarthritis, unspecified site; L30.9 Dermatitis, unspecified; B02.9 Zoster without complications; Z87.39 Personal history of other diseases of the musculoskeletal system and connective tissue; Z96.652 Presence of left artificial knee joint; Z79.899 Other long term (current) drug therapy

== ENCOUNTER → 2018-10-24 | Outpatient (CLI) | payer MEDICARE, OTHER ==
--- NOTE | ~2018-10-24 | PAINCON ---
[address] [address] PAIN MANAGEMENT CONSULTATION Name: CALVIN SLATER V Room: [facility] DIONE TanyaMarisabelCiriloMarisabel#: [id number] Admission: 10/24/18 Attend Phys: Alexia Thomas MD Discharge: Date of : 38 Report #: [id number] THIS REPORT FOR: //name// CC: Quentin Thomas DATE OF SERVICE: 10/24/2018 PRIMARY CARE PHYSICIAN: Quentin Beal DO CHIEF COMPLAINT: Here for medication renewal. HISTORY: The patient is an 78-year-old gentleman who has been followed in the pain clinic. He has pain in his shoulders. Has a history of cervical pain. Epidurals and steroid injection in the past have been beneficial. He returns today indicating that his pain is reasonably well controlled with his medications. Rates his pain as a 4/10. He has been having some sleeplessness associated with the pain at night. Feels his medications keep pain level at a tolerable place. Has no new complaints. Does have some pain in his knees, which is more problematic today. The weather pattern has changed. There is tornadic activity in the areas. Feels that the morphine and methadone are beneficial and has returned for the refill. Feels overall that things are about 80% improved. Notes pain and discomfort with lifting as well as with some sitting. ALLERGIES: No known drug allergies. CURRENT MEDICATIONS: Albuterol 2 puffs q.i.d., aspirin 81 mg, laxative, bisacodyl, Voltaren gel in the upper extremities 4 times daily, Benadryl 25 mg at bedtime, Synthroid 0.125 mg, lisinopril 10 mg, methadone 10 mg q.a.m., one-half tablet in the afternoon and 1 tablet at bedtime, Morphine 15 mg IR for severe breakthrough pain, Movantik 25 mg, and sennosides/docusate. PAIN CLINIC ASSESSMENT/PQRS: 1. The patient has some pain and discomfort involving his neck and shoulders. Has some pain in his left knee as well. He has not been treated for rheumatoid arthritis. 2. Height 5 feet 9 inches, weight 260 pounds, BMI is 38.3. 3. VITAL SIGNS: Blood pressure 149/86, heart rate 81, respiratory rate 16, room air saturation is 94%, temperature is 98.6. 4. Pain intensity 4/10. 5. Fall history: The patient has not fallen in the last 3 months. 6. Blood thinner. The patient is not on a blood thinning medication. 7. Hypertension. The patient has been treated for hypertension. 8. Opiates greater than 6 weeks. The [facility] [address] PAIN MANAGEMENT CONSULTATION Name: CALVIN SLATER V Room: [facility]#: [id number] Admission: 10/24/18 Attend Phys: Alexia Thomas MD Discharge: Date of : 38 Report #: [id number] 9. Risk assessment tool, low for opioid use. 10. Functional assessment tool. 11. Recreational drug use. The patient denies use of recreational drugs. 12. Tobacco: The patient denies use of tobacco. 13. Alcohol: The patient denies frequent use of alcoholic beverages. PHYSICAL EXAMINATION: GENERAL: The patient is a well-developed, well-nourished white male. Appears his stated age of 78 years. He is alert and oriented x 3. Affect is appropriate. Speech is fluent. HEENT: Normocephalic, atraumatic. Extraocular eye muscles intact. Sclerae nonicteric. Mucous membranes are moist. NECK: Without adenopathy or JVD. HEART: Regular rate. LUNGS: Clear to auscultation without rhonchi. ABDOMEN: Protuberant. Bowel sounds present. EXTREMITIES: Upper extremity muscle strength judged to be 4/5 for the right side. The patient has some pain and discomfort in the lower portion of his neck and down into his shoulders. Lower extremity muscle strength is judged to be 5-/5. The patient walks with a slightly antalgic gait. He uses hands go from a sitting to a standing position. Has a somewhat forward leaning gait. IMPRESSION: 1. History of cervical radiculopathy. 2. Multilevel degenerative disk disease with spinal disk bulging causing significant multilevel spinal stenosis and bilateral multilevel recess and neural foraminal stenosis of the upper lumbar spine. 3. Hypothyroidism. 4. Eczema. 5. Degenerative arthritis. 6. History of gout. 7. Remote history of shingles. 8. Left total knee replacement. RECOMMENDATIONS: We discussed treatment options with the patient. Risks and benefits of opioid medication were discussed. The patient feels medications are helpful. He is aware that opioid medications can be problematic. He has seen this information in the press. He feels these medications are helpful. They enable him to engage in activities he would not be able to without their use. Overall, they improved his quality of life. He rates his pain improvement with his current regimen of 80%. He does not have any problems with the medications. Keeps his medications in a guarded area. He is aware that 72,000 people last year as a result of opioid overdoses. The patient feels medications are beneficial and would like to have his medications renewed. We will continue with his Yarelis gel to his upper extremities, methadone 10 mg 1 p.o. t.i.d., morphine sulfate 15 mg b.i.d. p.r.[place] [address] PAIN MANAGEMENT CONSULTATION Name: CALVIN SLATER V Room: [facility]#: [id number] Admission: 10/24/18 Attend Phys: Alexia Thomas MD Discharge: Date of : 38 Report #: [id number] We would like to thank you for letting us participate in his care. We hope he continues to improve. By: 1114 [id number]. Piter Thomas MD /PMT
== END ==
LOC: M.PC 02:28
DX: M54.12 Radiculopathy, cervical region (principal); M51.36 Other intervertebral disc degeneration, lumbar region; M48.061 Spinal stenosis, lumbar region without neurogenic claudication; I10 Essential (primary) hypertension; E03.9 Hypothyroidism, unspecified; M10.9 Gout, unspecified; Z96.652 Presence of left artificial knee joint; Z79.899 Other long term (current) drug therapy; Z79.891 Long term (current) use of opiate analgesic

== ENCOUNTER → 2018-12-19 | Outpatient (CLI) | payer MEDICARE, OTHER ==
--- NOTE | ~2018-12-19 | PAINCON ---
[address] [address] PAIN MANAGEMENT CONSULTATION Name: SLATERCALVIN Lenard Room: [facility] Mclain#: [id number] Admission: 12/19/18 Attend Phys: Alexia Thomas MD Discharge: Date of : 38 Report #: [id number] THIS REPORT FOR: //name// CC: Quentin Thomas DATE OF SERVICE: 12/19/2018 CHIEF COMPLAINT: Cervical neck pain. FOLLOWUP HISTORY: The patient is an 79-year-old gentleman who has been followed in the pain clinic because of chronic pain. He has pain involving his shoulders. Cervical pain is rated at 4. He has noticed a considerable amount of pain in all of his joints. The humidity has risen. He notes that right shoulder and left ankle are most problematic areas of discomfort today. Denies any new trauma. He has been taking his medications as prescribed and feels that they are helpful. He continues to use Voltaren gel. Methadone is beneficial as well as morphine. He gets about 80% relief using these medications. As you may recall, he has had problems with chronic pain for a number of years. He does not feel that the medications are causing any problems with his sensorium. He is able to think clearly. He is not having problems with his bowels. ALLERGIES: No known drug allergies. MEDICATIONS: Albuterol 2 puffs q.i.d., aspirin 81 mg, laxatives, bisacodyl, Voltaren gel in the upper extremity 4 times daily, Benadryl 25 mg at bedtime, Synthroid 0.125 mg, lisinopril 10 mg, methadone 10 mg one-half tablet in the afternoon, one tablet at bedtime, morphine 15 mg IR for severe breakthrough pain, Movantik 25 mg, Sennosides/Docusate. PAIN CLINIC ASSESSMENT/PQRS: 1. The patient has some pain and discomfort in his neck and shoulders. He has had pain in his left knee as well. There is more pain in his ankles. He has been seen in the past by medical office supervisor, but is not being seen by one at this juncture. 2. Height 5 feet 9 inches, weight 255 pounds, BMI is 39.0. 3. Vital Signs: Blood pressure 119/72, heart rate 82, respiratory rate 16, room air saturation 95%, temperature is 97.8. 4. Pain intensity 4/10. 5. Fall history: The patient has not fallen in the last 3 months. 6. Blood thinner. The patient is not on a blood thinning medication. 7. Hypertension. The patient has not been treated for hypertension. 8. Opiates greater than 6 weeks. The [facility]. 9. Risk assessment tool, low for opioid use. 10. [place] [address] PAIN MANAGEMENT CONSULTATION Name: CALVIN SLATER V Room: [facility]#: [id number] Admission: 12/19/18 Attend Phys: Alexia Thomas MD Discharge: Date of : 38 Report #: [id number] 11. Recreational drug use: The patient denies use of recreational drugs. 12. Tobacco: The patient denies use of tobacco. 13. Alcohol: The patient denies frequent use of alcoholic beverages. PHYSICAL EXAMINATION: GENERAL: The patient is a well-developed, well-nourished white male. Appears his stated age. He is alert and oriented x 3. His affect is appropriate. Speech is fluent. HEENT: Normocephalic, atraumatic. Extraocular eye muscles intact. Sclerae nonicteric. Mucous membranes are moist. NECK: Without adenopathy or JVD. HEART: Regular rate. LUNGS: Clear to auscultation without rhonchi or rales. ABDOMEN: Bowel sounds present. EXTREMITIES: Upper extremity muscle strength is judged to be 4/5 for the right side. The patient has some pain in his right shoulder and the patient complains of pain in the lower portion of his back and particularly pain and discomfort in his ankle on the left side, goes from a sitting position to a standing position using his hands. He has a somewhat forward leaning gait. IMPRESSION: 1. History of cervical radiculopathy. 2. Multiple degenerative disk disease with spinal disk bulging causing significant multilevel spinal stenosis and bilateral midlevel recess and neural foraminal stenosis of the upper spine. 3. Hypothyroidism. 4. Eczema. 5. Degenerative arthritis. 6. History of gout. 7. Remote history of shingles. 8. Left total knee replacement. RECOMMENDATIONS: We discussed treatment options with the patient. Risks and benefits of opioid medications were discussed. The patient feels that his medication is helpful. He is aware of the problems with opioids. He has noted the trial of the opioid produces in the media. He feels his medications are working reasonably well. He would like to continue with the medication. He rates his pain as a 4/10. Keeps his medications in a guarded area. We have discussed the risks and benefits of the opioid use. He is aware that some patients can develop tolerance to medications relatively quickly and some patients can develop an addiction to it. He does not feel that he is having any problems with addiction. He is able to think clearly. He takes medication as prescribed, keeps in a guarded area. He would like to have it continued and has returned today for renewal. We will continue with the patient's methadone medication of 10 mg 1 tablet a.m., one-half tablet in the afternoon and 1 tablet at bedtime and morphine 1 tablet a.m. one-half tablet at noon and 1 [place] [address] PAIN MANAGEMENT CONSULTATION Name: CALVIN SLATER V Room: [facility]#: [id number] Admission: 12/19/18 Attend Phys: Alexia Thomas MD Discharge: Date of : 38 Report #: [id number] bedtime. A script for his medications have been written. He will call us if he has any concerns. We would like to thank you for letting us participate in his care. We hope he continues to improve. By: [id number] 1754N. Piter Thomas MD /nt
== END ==
LOC: M.PC 04:33
DX: M50.10 Cervical disc disorder with radiculopathy, unspecified cervical region (principal); M48.02 Spinal stenosis, cervical region; E03.9 Hypothyroidism, unspecified; L30.9 Dermatitis, unspecified; M19.90 Unspecified osteoarthritis, unspecified site; Z96.652 Presence of left artificial knee joint; Z79.899 Other long term (current) drug therapy; Z87.39 Personal history of other diseases of the musculoskeletal system and connective tissue; Z86.19 Personal history of other infectious and parasitic diseases

== ENCOUNTER → 2019-01-21 | Outpatient (CLI) | payer MEDICARE, OTHER ==
[~2019-01-21] MED LIST changes: +CELEBREX 200 M200 MG PO
--- NOTE | ~2019-01-21 | PAINCON ---
[address] [address] PAIN MANAGEMENT CONSULTATION Name: CALVIN SLATER V Room: [facility] NELL MartínezPrasad#: [id number] Admission: 01/21/19 Attend Phys: Alexia Thomas MD Discharge: Date of : 38 Report #: [id number] THIS REPORT FOR: //name// CC: Quentin Thomas DATE OF SERVICE: 01/21/2019 CHIEF COMPLAINT: Pain in the right hip. HISTORY: The patient is an 78-year-old gentleman who has been followed in the pain clinic because of chronic pain. He has pain, which is most problematic generally on his shoulders. He has had some cervical pain. He has undergone injections in the cervical area in the past. He has noted some increased pain and discomfort involving his right hip. He denies any new trauma. He is not aware of any activity, which he is engaged in that would cause increased pain and discomfort. He rates it as a 10/10. It has stopped him from engaging in certain activities. He has been unable to drive because of pain with lifting his right foot to press on the gear and lifting his right foot to press on the brake. He requires use of his hand to lift his right leg into the car. He has not had surgery on his hips. This is the first time he has had this level of discomfort involving his hip. His pain has been so severe that he increased the use of his methadone and hydrocodone. States that the pain has been quite anguishing. ALLERGIES: No known drug allergies. CURRENT MEDICATIONS: Albuterol 2 puffs q.i.d., aspirin 81 mg, laxatives, bisacodyl, Voltaren gel to the upper extremity 4 times daily, Benadryl 25 mg at bedtime, Synthroid 0.125 mg, lisinopril 10 mg, methadone 10 mg one-half tablet a.m., 5 mg afternoon and 10 mg at bedtime, morphine 15 mg IR for severe breakthrough pain, Movantik 25 mg, docusate. PAIN CLINIC ASSESSMENT AND PQRS: 1. The patient has pain and discomfort that radiates down into his neck and shoulders. He has noticed pain and discomfort in the right hip area with pain that radiates from the right hip into the groin area. Has had some pain and soreness in his ankles. He has been seen by deputy chief sheriff in the past, but is not being seen at this juncture. 2. Height 5 feet 9 inches, weight 260 pounds, BMI is 39. 3. Vital Signs: Blood pressure 168/94, heart rate 86, respiratory rate 16, room air saturation 91%, temperature is 98.5. 4. Pain score 10/10. 5. Fall history. The patient has not fallen in the last 3 months. 6. Blood thinner. The patient is not on a blood thinning medication. 7. Hypertension. The patient is not being [place] [address] PAIN MANAGEMENT CONSULTATION Name: CALVIN SLATER V Room: [facility]#: [id number] Admission: 01/21/19 Attend Phys: Alexia Thomas MD Discharge: Date of : 38 Report #: [id number] 8. Opioids greater than 6 weeks. 9. Risk assessment tool, low for opioid use. 10. Functional assessment tool. 11. Recreational drug use. The patient denies use of recreational drugs. 12. Tobacco: The patient denies use of tobacco. 13. Alcohol: The patient denies frequent use of alcoholic beverages. PHYSICAL EXAMINATION: GENERAL: The patient is a well-developed, well-nourished white male. Appears his stated age. He is alert and oriented x 3. His affect is appropriate. Speech is fluent. HEENT: Normocephalic, atraumatic. Extraocular eye muscles intact. Sclerae nonicteric. Mucous membranes are moist. NECK: Without adenopathy or JVD. HEART: Regular rate. LUNGS: Clear to auscultation without rhonchi or rales. ABDOMEN: Bowel sounds present. Protuberant.0 MUSCULOSKELETAL: Upper extremity muscle strength judged to be 4/5 for the major muscle groups on the right side. The patient has some pain and discomfort in his right shoulder and pain in the lower portion of his back. Has some pain and discomfort that radiates down the right hip into the right groin area. Notes some lancinating pain with certain movements while he is sitting. IMPRESSION: 1. History of cervical radiculopathy. 2. New onset of pain involving the right hip with pain in the right hip and with pain that radiates into the groin area with no new trauma. 3. Multilevel degenerative disk disease with spinal disk bulging causing significant multilevel spinal stenosis and bilateral mid level recess and neural foraminal stenosis of the upper spine. 4. Hypothyroidism. 5. Eczema. 6. Degenerative arthritis. 7. History of gout. 8. Remote history of shingles. 9. Left total knee replacement. RECOMMENDATIONS: We discussed treatment options with the patient. At this juncture, he is having pain that is quite problematic. Certain movements exacerbate his pain and discomfort in the right hip area. He is unable to lift his right leg at times without the assistance of using his hands. He has not been driving because of the severity of his pain. When he lifts his right leg to apply the brakes, he notes some increased pain and discomfort. He has been taking more of his opioid medications because of the severity of this pain. We will rewrite medication for the remainder of the month. He has been given the option of a right hip injection. He is having pain, which clinically is [facility] [address] [place] [address] PAIN MANAGEMENT CONSULTATION Name: CALVIN SLATER V Room: [facility]#: [id number] Admission: 01/21/19 Attend Phys: Alexia Thomas MD Discharge: Date of : 38 Report #: [id number] consistent with pain when hip joint discomfort is present. At this point, we will proceed with an epidural injection. Possible complication of the procedure, which could include infection, worsening pain, no improvement in pain, nerve damage, bleeding were discussed. The patient elects to proceed. PROCEDURE NOTE: The patient was taken to the procedure area. He was then assisted in getting on examination table. His right hip area was sterilely prepped with a chlorhexidine solution and allowed to dry. It was then cleansed with a Betadine solution. A 25-gauge needle was then advanced into the area over the left hip with a skin wheal. Fluoroscopy using anterior and posterior viewing were implemented. A 20-gauge spinal needle was then advanced to the area of the right hip. It was then injected with 3 mL of contrast dye. An appropriate outline of the hip was noted. A total of 40 mg Depo-Medrol with 5 mL of 0.5% bupivacaine was injected. The patient's pain decreased to 5/10 at the time of discharge. He will call us. Again, the patient has been given a script for pain medications of morphine sulfate 15 mg 1 p.o. b.i.d., total of 30 pills and methadone 10 mg a.m., 5 mg at noon and 10 mg at bedtime. We would like to thank you for letting us participate in his care. We hope he continues to improve. By: [id number]. Piter Thomas MD /PMT
== END | disposition home or self-care (01) ==
LOC: M.PC 05:09
DX: M25.551 Pain in right hip (principal); G89.29 Other chronic pain; M50.30 Other cervical disc degeneration, unspecified cervical region; M48.02 Spinal stenosis, cervical region; M54.12 Radiculopathy, cervical region; M10.9 Gout, unspecified; M19.90 Unspecified osteoarthritis, unspecified site; Z96.652 Presence of left artificial knee joint; Z98.890 Other specified postprocedural states; Z79.891 Long term (current) use of opiate analgesic; E03.9 Hypothyroidism, unspecified; Z79.899 Other long term (current) drug therapy; Z79.82 Long term (current) use of aspirin

== ENCOUNTER → 2019-01-28 | Outpatient (CLI) | payer MEDICARE, OTHER ==
--- NOTE | ~2019-01-28 | PAINCON ---
[address] [address] PAIN MANAGEMENT CONSULTATION Name: SLATERCALVIN Lenard Room: [facility] Chemo#: [id number] Admission: 01/28/19 Attend Phys: Alexia Thomas MD Discharge: Date of : 38 Report #: [id number] THIS REPORT FOR: //name// CC: Quentin Avalos DATE OF SERVICE: 01/28/2019 CHIEF COMPLAINT: The injections did really well for about 5 days. Again noted some pain. HISTORY: The patient is an 78-year-old gentleman who has been seen in the Pain Clinic because of chronic pain involving his right hip. The patient underwent an injection in the left hip. Noted some improvement in his pain initially after the injection and did well for about 4 days. He did note an increase in pain after going to the movies. States that he was sitting in the chair, noted some pain and discomfort. He then stood and walked to the restroom. Pain improved after that. The following day, he noticed some increased pain and with a slight amount of activity noted an improvement in his pain after that venture. He has returned today with a desire to see if anything additional needs to be done. Overall, he had two "attacks" and both mitigated over a short period of time. He did find some problems sleeping when the pain was present. Denies any bowel or bladder dysfunction. Denies any nerve damage. ALLERGIES: No known drug allergies. CURRENT MEDICATIONS: Albuterol 2 puffs q.i.d., aspirin 81 mg, laxatives, bisacodyl, Voltaren gel to the upper extremity 4 times daily, Benadryl 25 mg at bedtime, Synthroid 0.125 mg, lisinopril 10 mg, methadone 10 mg one-half tablet a.m., 5 mg afternoon and 10 mg at bedtime, morphine 15 mg IR for severe breakthrough pain, Movantik 25 mg, and docusate. PAIN CLINIC ASSESSMENT/PQRS: 1. The patient has pain and discomfort that radiates down into his neck and shoulders. He also has had pain and discomfort in his right hip with pain that radiates down the right hip involving the groin area. Notes some soreness in his ankles. The patient has seen a candle wrapper, but is not being treated at this juncture. 2. Height 5 feet 9 inches, weight 258 pounds, BMI is 38.3. 3. Vital Signs: Blood pressure is 126/71, heart rate 97, respiratory rate 16, room air saturation 99%, temperature is 99.1 and the saturation was 94%. 4. Pain score is 3/10. 5. Fall history: The patient has not fallen in the last 3 months. 6. Blood thinner. The patient is not on a blood thinning medication. 7. Hypertension. The patient is not [place] [address] PAIN MANAGEMENT CONSULTATION Name: CALVIN SLATER V Room: [facility]#: [id number] Admission: 01/28/19 Attend Phys: Alexia Thomas MD Discharge: Date of : 38 Report #: [id number] 8. Opioids greater than 6 weeks. The patient receives medications from one source the Pain Clinic. 9. Risk assessment tool, low for opioid use. 10. Functional assessment tool. 11. Recreational drug use. The patient denies use of recreational drugs. 12. Tobacco: The patient denies use of tobacco. 13. Alcohol: The patient denies frequent use of alcoholic beverages. PHYSICAL EXAMINATION: GENERAL: The patient is a well-developed, well-nourished white male. Appears his stated age. He is alert and oriented x 3. His affect is appropriate. Speech is fluent. HEENT: Normocephalic, atraumatic. Extraocular eye muscles intact. Sclerae nonicteric. Mucous membranes are moist. NECK: Without adenopathy or JVD. LUNGS: Clear to auscultation. ABDOMEN: Bowel sounds present. MUSCULOSKELETAL: Upper extremity muscle strength judged to be 4/5 for the major muscle groups in the upper extremity and 5-/5 for the left lower extremity and right lower extremity. The patient has had some pain that is radiating down into his right hip and the groin area. Left lancinating pain while sitting today. IMPRESSION: 1. History of cervical radiculopathy. 2. History of right hip pain, status post right hip injection with improvement and less pain radiating into the groin area without history of trauma. 3. Multilevel degenerative disk disease with spinal disk bulging causing significant multilevel spinal stenosis and bilateral midlevel recess and neural foraminal stenosis of the upper spine. 4. Hypothyroidism. 5. Eczema. 6. Degenerative arthritis. 7. History of gout. 8. Remote history of shingles. 9. Left total knee replacement. RECOMMENDATIONS: We discussed treatment options with the patient. At this juncture, we will continue with his current medications. The patient will continue with methadone as prescribed. He will also try a nonsteroidal anti-inflammatory medication. The patient states he has no problems with GI irritation. We will have the patient take a 200 mg Celebrex tablet daily for one month. He will call us if he has any concerns. [address] [place] [address] PAIN MANAGEMENT CONSULTATION Name: CALVIN SLATER V Room: [facility] NELL Mclain#: [id number] Admission: 01/28/19 Attend Phys: Alexia Thomas MD Discharge: Date of : 38 Report #: [id number] We would like to thank you for letting us participate in his care. We hope he continues to improve. By: [id number]. Piter Thomas MD /nt
== END ==
LOC: M.PC 04:54
DX: G89.29 Other chronic pain (principal); M54.12 Radiculopathy, cervical region; E03.9 Hypothyroidism, unspecified; Z79.891 Long term (current) use of opiate analgesic; Z79.899 Other long term (current) drug therapy; Z96.652 Presence of left artificial knee joint

== ENCOUNTER → 2019-02-13 | Outpatient (CLI) | payer MEDICARE, OTHER ==
--- NOTE | ~2019-02-13 | PAINCON ---
[address] [address] PAIN MANAGEMENT CONSULTATION Name: BRYONCALVIN Lenard Room: [facility] Chemo#: [id number] Admission: 02/13/19 Attend Phys: Alexia Thomas MD Discharge: Date of : 38 Report #: [id number] THIS REPORT FOR: //name// CC: Quentin Avalos DATE OF SERVICE: 02/13/2019 CHIEF COMPLAINT: Here for medication renewal. HISTORY: The patient is an 78-year-old gentleman who has been seen in the pain clinic because of chronic pain. Has pain involving his right hip. He underwent an injection into the right hip with improvement. He returns today for renewal of his medications. He rates his pain as a 2/10. Has some generalized joint pain. He feels that his hip injection, has been very helpful. Pain has pretty much resolved at this point. He feels that the Celebrex medication as well as methadone and morphine are beneficial. ALLERGIES: No known drug allergies. CURRENT MEDICATIONS: Albuterol 2 puffs q.i.d., aspirin 81 mg; laxative; bisacodyl; Voltaren gel to upper extremity 4 times daily; Benadryl 25 mg at bedtime; Synthroid 0.125 mg; lisinopril 10 mg; methadone 10 mg one-half tablet a.m., 15 mg tablet afternoon, and 10 mg at bedtime; morphine 15 mg immediate release for severe breakthrough pain; Movantik 25 mg; and docusate. PAIN CLINIC ASSESSMENT/PQRS: 1. The patient has pain and discomfort that radiates down to the back of his neck and shoulders. Has some pain and discomfort in his right hip, which is improved since the injection. The patient has some soreness in his ankles. He is not being followed by proj mgr. 2. Height 5 feet 9 inches, weight 261 pounds, BMI is 38.7. 3. Vital Signs: Blood pressure 124/90, heart rate 96, respiratory rate 16, room air saturation is 92%, temperature 98.5. 4. Pain intensity 07/14. 5. Fall history: The patient has not fallen in the last 3 months. 6. Blood thinner. The patient is not on a blood thinning medication. 7. Hypertension. The patient is not being treated for hypertension. 8. Opioids greater than 6 weeks. The patient receives medication from one source the pain clinic. 9. Risk assessment tool is low for opioid use. 10. Functional assessment tool. 11. Recreational drug use. The patient denies use of recreational drugs. 12. Tobacco: The patient denies use of tobacco. 13. Alcohol: The patient denies frequent use [place] [address] PAIN MANAGEMENT CONSULTATION Name: CALVIN SLATER V Room: [facility]#: [id number] Admission: 02/13/19 Attend Phys: Alexia Thomas MD Discharge: Date of : 38 Report #: [id number] PHYSICAL EXAMINATION: GENERAL: The patient is a well-developed, well-nourished white male. Appears his stated age. He is alert and oriented x 3. His affect is appropriate. Speech is fluent. HEENT: Normocephalic, atraumatic. Extraocular eye muscles intact. Sclerae are nonicteric. Mucous membranes are moist. NECK: Without adenopathy. ABDOMEN: Nontender. MUSCULOSKELETAL: Upper extremity muscle strength is judged to be 4/5 for the major muscle groups in the upper extremity and 5-/5 for the major muscle groups in the lower extremity. The patient has less pain and discomfort into his hip. IMPRESSION: 1. Improved hip pain. 2. History of cervical radiculopathy. 3. History of right hip pain, which is improved after the injection in the greater trochanteric area. 4. Multiple level degenerative disk disease and spinal disk bulging causing significant multilevel spinal stenosis and bilateral multilevel recess and neural foraminal stenosis of the upper spine. 5. Hypothyroidism. 6. Eczema. 7. Degenerative arthritis. 8. History of gout. 9. Remote history of shingles. 10. Left knee replacement. RECOMMENDATIONS: We discussed treatment options with the patient. At this juncture, we will continue with his medications. He feels that things have improved since the left hip was injected. He is not having any significant problems at this point. He feels that his methadone, which he takes on a regular basis is beneficial. He has taken the medication as prescribed. He is aware that opioid medications can be problematic in certain patient populations. He feels that the medication is helpful and is not causing any concerns. He does not show any signs of addictive behavior. He has taken the medication as prescribed. Keeps his medications in a guarded area. We will continue to help control his pain with his complex medical management using opioids. We would like to thank you for letting us participate in his care. By: [id number]. Piter Thomas MD /MATHEUS
== END ==
LOC: M.PC 05:26
DX: Z76.0 Encounter for issue of repeat prescription (principal); M50.10 Cervical disc disorder with radiculopathy, unspecified cervical region; M48.02 Spinal stenosis, cervical region; Z79.899 Other long term (current) drug therapy; Z79.891 Long term (current) use of opiate analgesic

== ENCOUNTER → 2019-04-10 | Outpatient (CLI) | payer MEDICARE, OTHER ==
--- NOTE | 2019-04-15 10:01 | PAINCON ---
[address] [address] PAIN MANAGEMENT CONSULTATION Name: SLATERCALVIN Lenard Room: [facility] NE[facility] Mclain#: [id number] Admission: 04/10/19 Attend Phys: Alexia Thomas MD Discharge: Date of : 38 Report #: [id number] THIS REPORT FOR: //name// CC: ASHTYN BROWN DO Ashtyn Thomas DATE OF SERVICE: 04/10/2019 CHIEF COMPLAINT: Here for renewal of the medications. HISTORY: The patient is an 78-year-old gentleman who has been followed in the pain clinic. As you may recall, he has a number of areas of pain. He has some generalized joint pain. He has been doing reasonably well. His right hip has caused some severe pain. Overall, it appears to be doing better. He still ambulates slowly. Rates his pain overall as a 2/10. He has had an injection in the right hip. Feels that that was beneficial. Feels that his medications of methadone and morphine are helpful. Feels his pain is 60-70% improved with his current medical regimen. Activities such as cold weather and sitting can be problematic. Feels that use of heat and cold as well as medications enable him to be much more active and mobile. ALLERGIES: No known drug allergies. CURRENT MEDICATIONS: Albuterol 2 puffs q.i.d., aspirin 81 mg, laxatives, bisacodyl, Voltaren gel to the upper extremity 4 times daily, Benadryl 25 mg at bedtime, Synthroid 0.125 mg, lisinopril 10 mg, methadone 10 mg one-half tablet a.m., 15 mg afternoon and 10 mg at bedtime, morphine 15 mg immediate release for severe breakthrough pain, Movantik 25 mg, docusate. PAIN CLINIC ASSESSMENT/PQRS: 1. The patient does have pain in shoulders, neck, and number of generalized areas including his hips. History of soreness in his ankles. He is not being treated by coconut jelly roller. 2. Height 5 feet 9 inches, weight 268 pounds, BMI is 39.6. Blood pressure 144/92, heart rate 95, respiratory rate 16, room air saturation 91%. 3. Temperature 98.8. 4. Pain intensity 07/14. 5. Fall history: The patient has not fallen in the last 3 months. 6. Blood thinner. The patient is not on a blood thinning medication. 7. Hypertension. The patient is not being treated for hypertension. 8. Opioids greater than 6 weeks. The patient received medication from one source, pain clinic. 9. Risk assessment tool, low for opioid use. 10. Functional assessment tool. 11. Recreational drug use: [place] [address] PAIN MANAGEMENT CONSULTATION Name: CALVIN SLATER V Room: [facility]#: [id number] Admission: 04/10/19 Attend Phys: Alexia Thomas MD Discharge: Date of : 38 Report #: [id number] 12. Tobacco: The patient denies. 13. Alcohol. The patient denies frequent use of alcoholic beverages. PHYSICAL EXAMINATION: GENERAL: The patient is a well-developed, well-nourished 78-year-old gentleman. He appears his stated age. He is alert and oriented x 3. His affect is appropriate. Speech is fluent. HEENT: Normocephalic, atraumatic. Extraocular eye muscles intact. Sclerae nonicteric. Mucous membranes are moist. NECK: Without adenopathy or JVD. ABDOMEN: Nontender. MUSCULOSKELETAL: Judged to be 4/5 for the major muscle groups in the upper extremity. Lower extremity muscle strength is 5-/5 for the major muscle groups. The patient has improved comfort in his hip. IMPRESSION: 1. History of hip pain status post hip injection. 2. History of cervical radiculopathy. 3. History of right hip pain with improvement after the injection. 4. Multilevel degenerative disk disease and spinal disk bulging causing significant multilevel spinal stenosis and bilateral multilevel recess and neural foraminal stenosis of the upper spine. 5. Hypothyroidism. 6. Eczema. 7. Degenerative arthritis. 8. History of gout. 9. Remote history of shingles. 10. Left knee replacement. RECOMMENDATIONS: We discussed treatment options with the patient. At this juncture, we will continue with his current medication. Feels that the medications are helpful. Does not have any problems with the methadone medication. He is taking it at 3 times a day and feels that is beneficial. The patient has morphine, which he takes 15 mg for severe pain. He feels this medication is helpful. He does not have any problems with his sensorium. He is not having any GI complaints to speak of. He feels that his pain is 60-70% improved with his current medication, he does note some exacerbation of his pain with activity. The cold weather has arrived and is worsening his pain. He has taken the medication as prescribed. He has not shown any signs of dependency. We discussed the risk of tolerance. Overall, the patient is doing reasonably well and will continue with his current medication. A script for his medications has been rewritten. The patient will continue with methadone 10 mg 1 tablet a.m., 1-1/2 tablets at noon and 1 tablet at bedtime. A total of 90 tablets have been provided. The patient will also continue with morphine sulfate 15 mg immediate release for severe breakthrough pain, total of 2 tablets a day are available. The patient will call us if he [place] [address] PAIN MANAGEMENT CONSULTATION Name: CALVIN SLATER V Room: [facility]#: [id number] Admission: 04/10/19 Attend Phys: Alexia Thomas MD Discharge: Date of : 38 Report #: [id number] We would like to thank you for letting us participate in his care. <ELECTRONICALLY SIGNED> By: Alexia Thomas MD 04/15/19 [id number]. Piter Thomas MD /nt
== END ==
LOC: M.PC 05:34
DX: Z76.0 Encounter for issue of repeat prescription (principal); M50.10 Cervical disc disorder with radiculopathy, unspecified cervical region; M48.02 Spinal stenosis, cervical region; E03.9 Hypothyroidism, unspecified; M10.9 Gout, unspecified; Z79.899 Other long term (current) drug therapy; Z96.652 Presence of left artificial knee joint; Z79.891 Long term (current) use of opiate analgesic

== ENCOUNTER → 2019-06-05 | Outpatient (CLI) | payer MEDICARE, OTHER ==
--- NOTE | ~2019-06-05 | PAINCON ---
[address] [address] PAIN MANAGEMENT CONSULTATION Name: CALVIN SLATER V Room: [facility].#: [id number] Admission: 06/05/19 Attend Phys: Alexia Thomas MD Discharge: Date of : 38 Report #: [id number] THIS REPORT FOR: //name// CC: ASHTYN BEAL DO FAM unknown Alexia Thomas DATE OF SERVICE: 06/05/2019 PRIMARY PHYSICIAN: Ashtyn Beal DO CHIEF COMPLAINT: Here for medication renewal. HISTORY: The patient is an 79-year-old gentleman, who has been followed in the pain clinic. He has had pain for quite a number of years. Has some generalized pain in a number of areas. Notes overall that his pain continues to be reasonably controlled. He feels that his methadone medication and his morphine continue to provide him benefit. He is not having any problems with constipation or problems with his ability to think clearly. He feels that the medication continues to be helpful. Notes that the pain has increased somewhat because of the cold weather now. Does have pain and discomfort because of the spinal stenosis. ALLERGIES: No known drug allergies. CURRENT MEDICATIONS: Albuterol 2 puffs q.i.d., aspirin 81 mg, laxatives, bisacodyl, Voltaren gel to the upper extremities 4 times daily, Benadryl 25 mg at bedtime, Synthroid 0.125 mg, lisinopril 10 mg, methadone 10 mg 1 tablet a.m., 0.5 tablet noon, 0.5 tablet at bedtime, morphine 15 mg 1 p.o. b.i.d., Movantik 25 mg, docusate. PAIN CLINIC ASSESSMENT AND PQRS: 1. The patient does have some pain and discomfort in his shoulders, neck, and has numerous areas of pain, including those down in his hip. Has some soreness in the ankle area. He is not being treated by electrical repairer. 2. Height 5 feet 9 inches, weight 264 pounds, BMI is 39.1. 3. Vital signs: Blood pressure 144/90, heart rate 85, respiratory rate 16, room air saturation is 91%, temperature 98.2. 4. Pain intensity 07/14. 5. Fall history: The patient has not fallen in the last 3 months. 6. Blood thinner. The patient is not on a blood thinning medication. 7. Hypertension. The patient is not being treated for hypertension. 8. Opioids greater than 6 weeks. The patient received medication from [facility]. 9. Risk assessment tool, low for opioid use. 10. [place] [address] PAIN MANAGEMENT CONSULTATION Name: CALVIN SLATER V Room: [facility]#: [id number] Admission: 06/05/19 Attend Phys: Alexia Thomas MD Discharge: Date of : 38 Report #: [id number] 11. Recreational drug use: The patient denies. 12. Tobacco: The patient denies. 13. Alcohol. The patient denies frequent alcoholic beverages. PHYSICAL EXAMINATION: GENERAL: The patient is a well-developed, well-nourished white male. Appears his stated age of 79. He is alert and oriented x 3. His affect is appropriate. Speech is fluent. HEENT: Normocephalic, atraumatic. Extraocular eye muscles intact. Sclerae nonicteric. NECK: Without adenopathy or JVD. ABDOMEN: Nontender. EXTREMITIES: Upper extremity muscle strength judged to be 4/5 for the major muscle groups in the upper extremities. Lower extremity muscle strength 5-/5 for the major muscle groups in the lower extremities. The patient complains of some pain in his hip. IMPRESSION: 1. History of hip pain, status post hip injection. 2. History of cervical radiculopathy. 3. History of right hip pain. 4. Multilevel degenerative disk disease and spinal disk bulging causing significant mid multilevel spinal stenosis and bilateral multilevel recess and neural foraminal stenosis of the upper spine. 5. Hypothyroidism. 6. Eczema. 7. Degenerative arthritis. 8. History of gout. 9. Remote history of shingles. 10. Left knee replacement. RECOMMENDATIONS: We discussed treatment options with the patient. At this juncture, he feels his medications of morphine and methadone are helpful. They appear to be working well. He rates his pain as a 2/10. His sensorium is clear. He is able to think clearly. He is aware that opioid medications can become less effective over time because of development of tolerance. He has taken the medication as prescribed. He keeps his medications in a guarded area. We will continue with his medication. A script for his medications has been rewritten. He will continue with morphine sulfate as written 1 p.o. t.i.d. We would like to thank you for letting us participate in his care. We hope he continues to improve. By: [id number]. Piter Thomas MD /iftikhar
== END ==
LOC: M.PC 10:15
DX: M25.551 Pain in right hip (principal); M50.10 Cervical disc disorder with radiculopathy, unspecified cervical region; M48.02 Spinal stenosis, cervical region; E03.9 Hypothyroidism, unspecified; M19.90 Unspecified osteoarthritis, unspecified site; Z96.652 Presence of left artificial knee joint

== ENCOUNTER → 2019-07-31 | Outpatient (CLI) | payer MEDICARE, OTHER ==
[~2019-07-31] MED LIST changes: +NARCAN4 MG NARES
--- NOTE | 2019-08-19 09:57 | PAINCON ---
[facility] [address] [place] [address] PAIN MANAGEMENT CONSULTATION Name: CALVIN SLATER V [facility] [id number] Admission: 07/31/19 Attend Phys: Alexia Thomas MD Discharge: Date of : 38 Report #: [id number] THIS REPORT FOR: //name// cc: Quentin Beal David DO ~ THIS REPORT FOR: //name// CC: Quentin Avalos DATE OF SERVICE: 07/31/2019 CHIEF COMPLAINT: Right shoulder pain, which feels like it might be out of the socket. HISTORY: The patient is an 79-year-old gentleman who has returned to the pain clinic because of chronic joint pain. He has pain in his shoulders as well as in his knees. He notes that the weather pattern has changed. This has caused some increased discomfort. He rates his pain overall as a 3/10. Notes that because of the cold weather, sitting, walking and standing can be problematic. He has used heat as well as rest to help control the pain. He is not having any complications with his medications. He is able to think clearly. Keeps his medications in a guarded area. He has returned today for renewal of the medications. ALLERGIES: No known drug allergies. CURRENT MEDICATIONS: Albuterol 2 puffs q.i.d., aspirin 81 mg, laxatives, bisacodyl, Voltaren gel upper extremity 4 times daily, Benadryl 25 mg at bedtime, Synthroid 0.125 mg, lisinopril 10 mg; methadone 10 mg 1 tablet a.m., one half tablet at noon, one-half tablet at bedtime; morphine 15 mg 1 p.o. b.i.d., Movantik 25 mg, docusate. PAIN CLINIC ASSESSMENT AND PQRS: 1. The patient does have some pain and discomfort in the shoulder, neck and numerous areas including down his hip. Has some soreness in his ankles. 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 2. Height 5 feet 9 inches, weight 267 pounds, BMI is 39.0. 3. Vital signs: Blood pressure 140/93, heart rate 89, respiratory rate 16, room air saturation 97%, temperature 98.4. 4. Pain intensity: /10. 5. Fall history: The patient has not fallen in the last 3 months. 6. Blood thinner: The patient is not on a blood thinning medication. 7. Hypertension: The patient is not being treated for hypertension. 8. Opioids: Greater than 6 weeks. [place] [address] PAIN MANAGEMENT CONSULTATION Name: CALVIN SLATER V Room: [facility]#: [id number] Admission: 07/31/19 Attend Phys: Alexia Thomas MD Discharge: Date of : 38 Report #: [id number]. 9. Risk assessment tool: Low for opioid use. 10. Functional assessment tool. 11. Recreational drug use: The patient denies. 12. Tobacco: The patient denies. 13. Alcohol: The patient denies frequent use of alcoholic beverages. PHYSICAL EXAMINATION: GENERAL: The patient is a well-developed, well-nourished white male. Appears his stated age of 79 years. He is alert and oriented x 3. His affect is appropriate. Speech is fluent. HEENT: Normocephalic, atraumatic. Extraocular eye muscles intact. Sclerae nonicteric. Mucous membranes are moist. NECK: Without adenopathy or JVD. Does have some pain and discomfort in his shoulders. LUNGS: Generally clear to auscultation. ABDOMEN: Nontender. EXTREMITIES: Upper extremity muscle strength judged to be 4+/5 for the major muscle groups in the upper extremity. Lower extremity muscle strength 5-/5 for the major muscle groups in the lower extremity. The patient does complain of pain in his hip. IMPRESSION: 1. History of hip pain status post hip injection. 2. History of cervical radiculopathy. 3. History of right hip pain. 4. Multilevel degenerative disk disease and spinal disk bulging causing significant multilevel spinal stenosis and bilateral multilevel recess and neural foraminal stenosis of the upper spine. 5. Hypothyroidism. 6. Eczema. 7. Degenerative arthritis. 8. History of gout. 9. Remote history of shingles. 10. Left knee replacement. RECOMMENDATIONS: We discussed treatment options with the patient. At this juncture, we will continue with his medications. He feels the medications are helpful. He feels that they provide about 60-70% improvement. He has taken the medication as prescribed. He keeps his medications at a guarded area. He is aware that opioid medications can become less effective over time because of development of tolerance. He will continue with his medications. A script for methadone 10 mg has been written. He will take one 10 mg tablet in the morning, 5 mg tablet at night and 5 mg tablet at midday. He will also continue with morphine sulfate immediate release 15 mg one p.o. b.i.d. 1-2 tablets as needed. He is able to think clearly. These medications are not [address] [place] [address] PAIN MANAGEMENT CONSULTATION Name: CALVIN SLATER V Room: [facility]#: [id number] Admission: 07/31/19 Attend Phys: Alexia Thomas MD Discharge: Date of : 38 Report #: [id number] causing any problems. He is not showing any signs of dependency. A script for his medications has been rewritten. He will call us if he has any concerns. We would like to thank you for letting us participate in his care. We hope he continues to improve. <ELECTRONICALLY SIGNED> By: Alexia Thomas MD 08/19/19 [id number]. Piter Thomas MD /nt
== END ==
LOC: M.PC 02:15
DX: M50.30 Other cervical disc degeneration, unspecified cervical region (principal); M48.02 Spinal stenosis, cervical region; E03.9 Hypothyroidism, unspecified; M19.90 Unspecified osteoarthritis, unspecified site; Z79.891 Long term (current) use of opiate analgesic; Z96.652 Presence of left artificial knee joint

== ENCOUNTER → 2019-12-18 | Outpatient (CLI) | payer MEDICARE, OTHER ==
--- NOTE | 2020-01-01 22:53 | PAINCON ---
[address] [address] PAIN MANAGEMENT CONSULTATION Name: CALVIN SLATER V [facility] [id number] Admission: 12/18/19 Attend Phys: Alexia Thomas MD Discharge: Date of : 38 Report #: [id number] THIS REPORT FOR: //name// cc: Quentin Beal David DO ~ THIS REPORT FOR: //name// CC: Quentin Avalos DATE OF SERVICE: 12/18/2019 CHIEF COMPLAINT: Here for medication renewal. HISTORY: The patient is an 79-year-old gentleman who has been followed in the Pain Clinic because of chronic pain involving his shoulders and neck. He describes his pain as a 1/10 today. He has been staying at home because of the COVID-19 infection, which continues to spread. He misses going to the library because of the lock down associated with the library. He used to go to the movies frequently. His son works for the [employer]. He no longer works there and does not receive free tickets. Overall, he feels that things are going reasonably well and he would like to have his medications renewed. ALLERGIES: No known drug allergies. CURRENT MEDICATIONS: Albuterol 2 puffs q.i.d., aspirin 81 mg, laxatives, bisacodyl, Voltaren gel to the upper extremity 4 times daily, Benadryl 25 mg at bedtime, Synthroid 0.125 mg, lisinopril 10 mg, methadone 10 mg a.m., one half tablet at noon one-half tablet at bedtime, morphine 15 mg b.i.d., Movantik 25 mg, docusate. PAIN CLINIC ASSESSMENT/PQRS: 1. The patient does have some pain and discomfort in his shoulders, neck, and numerous areas including his hips. Has some soreness in his ankle. 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 2. Height 5 feet 9 inches, weight 265 pounds, BMI is 39. 3. Vital signs: Blood pressure 141/92, heart rate 90, respiratory rate 16, room air saturation 97%, and temperature 98.3. 4. Pain intensity is 1/10. 5. Fall history: The patient did fall. States that he tripped getting the kitten out of a fence. Somewhat bruised his left arm. Did not need medical attention. 6. Blood thinner. The patient is not on a blood thinning medication. 7. Hypertension. The patient is not being treated for hypertension. 8. Opioids greater than 6 weeks. The patient [place] [address] PAIN MANAGEMENT CONSULTATION Name: CALVIN SLATER V Room: [facility]#: [id number] Admission: 12/18/19 Attend Phys: Alexia Thomas MD Discharge: Date of : 38 Report #: [id number]. 9. Risk assessment tool, low for opioid use. 10. Functional assessment tool. 11. Recreational drug use. The patient denies. 12. Tobacco: The patient denies. 13. Alcohol. The patient denies frequent use of alcoholic beverages. PHYSICAL EXAMINATION: GENERAL: The patient is a well-developed, well-nourished white male. Appears his stated age of 79 years. He is alert and oriented x 3. His affect is appropriate. Speech is fluent. HEENT: Normocephalic, atraumatic. Extraocular eye muscles intact. Sclerae nonicteric. Mucous membranes are moist. The patient is wearing a mask. NECK: Without adenopathy or JVD, has some discomfort in his shoulders. HEART: Regular rate. LUNGS: Generally clear. ABDOMEN: Nontender. EXTREMITIES: Upper extremity muscle strength is judged to be 4+/5 for the major muscle groups in the upper extremity. The patient's lower extremity muscle strength is 5-/5 for the major muscle groups in the lower extremity. Complains of some pain and discomfort in his hip. IMPRESSION: 1. History of hip pain, status post hip injection. 2. History of cervical radiculopathy. 3. History of right hip pain. 4. Multilevel degenerative disk disease with spinal disk bulging causing significant multilevel spinal stenosis and bilateral multilevel recess and neural foraminal stenosis of the upper spine. 5. Hypothyroidism. 6. Eczema. 7. Degenerative arthritis. 8. History of gout. 9. Remote history of shingles. 10. Left knee replacement. RECOMMENDATIONS: We discussed treatment options with the patient. At this juncture, we will continue with his medications. He feels that things are going reasonably well. He would like to continue with his medications. He is gleaned greater than 60-70% improvement with his current medical regimen. A script for his medications has been rewritten. He will continue with methadone 10 mg 1 p.o. t.i.d. and he will also continue with morphine 15 mg 1 p.o. b.i.d. He will call us if he has any problems with his medications. He will call us if he has any concerns. He will continue to stay at home to lessen the chance of an infection from COVID. [address] [place] [address] PAIN MANAGEMENT CONSULTATION Name: CALVIN SLATER V Room: [facility]#: [id number] Admission: 12/18/19 Attend Phys: Alexia Thomas MD Discharge: Date of : 38 Report #: [id number] We would like to thank you for letting us participate in his care. We hope he continues to improve. <ELECTRONICALLY SIGNED> By: Alexia Thomas MD 01/01/20 [id number]. Piter Thomas MD /nt
== END ==
LOC: M.PC 04:09
PROVIDERS: ATTEND Anesthesiology Pain Medicine
DX: L30.9 Dermatitis, unspecified (principal); E03.9 Hypothyroidism, unspecified; M19.90 Unspecified osteoarthritis, unspecified site; M48.02 Spinal stenosis, cervical region; M50.10 Cervical disc disorder with radiculopathy, unspecified cervical region; M50.30 Other cervical disc degeneration, unspecified cervical region; M10.9 Gout, unspecified; Z96.659 Presence of unspecified artificial knee joint

== ENCOUNTER → 2020-02-12 | Outpatient (CLI) | payer MEDICARE, OTHER ==
--- NOTE | 2020-02-20 12:58 | PAINCON ---
[address] [address] PAIN MANAGEMENT CONSULTATION Name: CALVIN SLATER V Room: [facility].#: [id number] Admission: 02/12/20 Attend Phys: Alexia Thomas MD Discharge: Date of : 38 Report #: [id number] THIS REPORT FOR: //name// cc: Janes Cutler Dean R. FNP-C ~ THIS REPORT FOR: //name// CC: Janes Thomas DATE OF SERVICE: 02/19/2020 CHIEF COMPLAINT: "Pain in the joints, hands and wrists are hurting." HISTORY: The patient is an 79-year-old gentleman who has been followed in the pain clinic because of chronic pain. He returns today for renewal of his medications. He finds that he continues to have pain in his neck and shoulder area. He also has pain in his hands and feels that his wrists are hurting today. He has noticed worsening of the pain with change in weather. He would like to continue with his medications. He feels that the methadone and morphine are helpful. They provide about 50% improvement for his pain. He is using medications as prescribed. He is not having any complications with them. He is still staying socially distanced because of the coronavirus. He has pain in his knees, wrists as well as in his left thumb. ALLERGIES: No known drug allergies. CURRENT MEDICATIONS: Albuterol 2 puffs q.i.d., aspirin 81 mg, laxatives, bisacodyl, Voltaren gel to the upper extremity 4 times daily, Benadryl 25 mg at bedtime, Synthroid 0.125 mg, lisinopril 10 mg, methadone 10 mg, 1/2 tablet 5 mg at bedtime and in midday. Morphine 15 mg b.i.d., Movantik 25 mg, docusate. PAIN CLINIC ASSESSMENT AND PQRS: 1. The patient does have some pain and discomfort involving the shoulder, neck and numerous areas, also including his hips and his thumb. He is not being treated for rheumatoid arthritis. 2. Height 5 feet 9 inches, weight 269 pounds, BMI is 40. 3. Vital signs: Blood pressure 153/119. Second blood pressure 144/96, heart rate 86, respiratory rate 16, room air saturation 91%, temperature 97.7. 4. Pain intensity 4/10. 5. Fall history: The patient has not fallen since we saw him last. 6. Blood thinner. The patient is not on a blood thinning medication. 7. Hypertension. The patient is not being treated for hypertension. 8. Opioids greater than 6 weeks. [facility]. 9. Risk assessment tool, low [place] [address] PAIN MANAGEMENT CONSULTATION Name: SLATERCALVIN Lenard Room: [facility]#: [id number] Admission: 02/12/20 Attend Phys: Alexia Thomas MD Discharge: Date of : 38 Report #: [id number] 10. Functional assessment tool. 11. Recreational drug use. The patient denies. 12. Tobacco: The patient denies. 13. Alcohol: The patient denies frequent use of alcoholic beverages. PHYSICAL EXAMINATION: GENERAL: The patient is a well-developed, well-nourished white male. Appears his stated age of 79 years. He is alert and oriented x 3. His affect is appropriate. Speech is fluent. HEENT: Normocephalic, atraumatic. Extraocular eye muscles intact. Sclerae nonicteric. Mucous membranes are moist. The patient is wearing a mask. NECK: Without adenopathy. Does complain of pain in his shoulders. LUNGS: Generally clear. ABDOMEN: Nontender. EXTREMITIES: Upper extremity muscle strength judged to be 4+/5 for the major muscle groups in the upper extremity. The patient's lower extremity muscle strength 5-/5 for the major muscle groups in the lower extremity. Has some pain and discomfort in his hips. IMPRESSION: 1. History of hip pain, status post hip injection. 2. Cervical radiculopathy. 3. History of right hip pain. 4. Multilevel degenerative disk disease with spinal disk bulging causing multilevel spinal stenosis and bilateral multilevel recess and neural foraminal stenosis of the upper spine. 5. Hypothyroidism. 6. Eczema. 7. Degenerative arthritis. 8. History of gout. 9. Remote history of shingles. 10. Left knee replacement. RECOMMENDATIONS: We discussed treatment options with the patient. At this juncture, we will continue his medications. A script for his medications have been provided. He will continue with methadone 10 mg t.i.d. He will also continue with morphine sulfate 15 mg 1 p.o. b.i.d. The patient will continue with Narcan. This medication has been provided should he need in the future. We would like to thank you for letting us participate in his care. He is aware that opioid medications can become less effective as [place] [address] PAIN MANAGEMENT CONSULTATION Name: CALVIN SLATER Lenard Room: [facility]#: [id number] Admission: 02/12/20 Attend Phys: Alexia Thomas MD Discharge: Date of : 38 Report #: [id number] We would like to thank you for letting us participate in his care. We hope he continues to improve. <ELECTRONICALLY SIGNED> By: Alexia Thomas MD 02/20/20 [id number]. Piter Thomas MD /nt
== END ==
LOC: M.PC 10:16
PROVIDERS: ATTEND Anesthesiology Pain Medicine
DX: M50.10 Cervical disc disorder with radiculopathy, unspecified cervical region (principal); E03.9 Hypothyroidism, unspecified; L30.9 Dermatitis, unspecified; M19.90 Unspecified osteoarthritis, unspecified site; Z96.652 Presence of left artificial knee joint; Z86.19 Personal history of other infectious and parasitic diseases; Z87.39 Personal history of other diseases of the musculoskeletal system and connective tissue

== ENCOUNTER → 2020-04-08 | Outpatient (CLI) | payer MEDICARE, OTHER ==
--- NOTE | 2020-05-06 14:42 | PAINCON ---
[address] [address] PAIN MANAGEMENT CONSULTATION Name: CALVIN SLATER Lenard Room: [facility] Mclain#: [id number] Admission: 04/08/20 Attend Phys: Alexia Thomas MD Discharge: Date of : 36 Report #: [id number] THIS REPORT FOR: //name// cc: Janes Cutler Dean R. FNP-C ~ CC: Janes Thomas DATE OF SERVICE: 04/08/2020 CHIEF COMPLAINT: Cervical neck pain. HISTORY: The patient is an 79-year-old gentleman who has been followed in the Pain Clinic because of chronic pain. He has generalized joint pain in number of areas. Has left as well as right knee pain. Right side is most problematic. With his current medications, he feels things are about 80% improved. Finds that the methadone and the morphine medications continued to be helpful. Rates his pain as a 4/10. The weather has changed. Notes that the pain starts to become more problematic with cooling temperatures. Sitting, walking and bending can be problematic. Overall, he feels that things are going reasonably well and that these medications improve his activities of daily living. He is still staying socially isolated and sheltering at home because of COVID-19. ALLERGIES: No known drug allergies. CURRENT MEDICATIONS: Albuterol 2 puffs q.i.d., aspirin 81 mg, laxatives, bisacodyl, Voltaren gel to the upper extremity 4 times daily, Benadryl 25 mg at bedtime, Synthroid 0.125 mg, lisinopril 10 mg, methadone 10 mg, one-half tablet 5 mg at bedtime and one midday. Morphine 15 mg b.i.d., Movantik 25 mg, docusate. PAIN CLINIC ASSESSMENT/PQRS: 1. The patient does have a history of pain and discomfort involving his shoulders, neck and other areas including his hips and thumb. He is not being treated for rheumatoid arthritis. 2. Height 5 feet 9 inches, weight 268 pounds, BMI is 39. 3. Vital signs: Blood pressure 134/84, heart rate 92, respiratory rate 16, room air saturation 96%, temperature 97.1. 4. Pain intensity, 4/10. 5. Fall history: The patient has not fallen since we saw him last. 6. Blood thinner. The patient is not on a blood thinning medication. 7. Hypertension. The patient is not being treated for hypertension. 8. Opioids greater than 6 weeks. The patient receives medication from one source the Pain Clinic. 9. Risk assessment tool, [place] [address] PAIN MANAGEMENT CONSULTATION Name: CALVIN SLATER V Room: [facility]#: [id number] Admission: 04/08/20 Attend Phys: Alexia Thomas MD Discharge: Date of : 36 Report #: [id number] 10. Functional assessment tool. 11. Recreational drug use: The patient denies. 12. Tobacco: The patient denies. 13. Alcohol. The patient denies frequent use of alcoholic beverages. PHYSICAL EXAMINATION: GENERAL: The patient is a well-developed, well-nourished white male. Appears his stated age. He is alert and oriented x 3. His affect is appropriate. Speech is fluent. HEENT: Normocephalic, atraumatic. Extraocular eye muscles intact. Sclerae nonicteric. Mucous membranes are moist. The patient is wearing a facial mask. NECK: Without adenopathy. Does complain of pain in his shoulders. LUNGS: Generally clear. ABDOMEN: Nontender. EXTREMITIES: Upper extremity muscle strength, the patient does have muscle soreness and weakness in the upper extremity and it is rated as 4+/5 for the major muscle groups in his upper extremity. The patient has lower extremity muscle pain, muscle strength judged to be 5-/5 for the major muscle groups in the lower extremity. The patient has some pain and discomfort in his hips. IMPRESSION: 1. History of hip pain, status post hip injection. 2. Cervical radiculopathy. 3. History of right hip pain. 4. Multilevel degenerative disk disease with spinal disk bulging causing multilevel spinal stenosis and bilateral multilevel recess and neural foraminal stenosis of the upper extremity and upper spine. 5. Hypothyroidism. 6. Eczema. 7. Degenerative arthritis. 8. History of gout. 9. Remote history of shingles. 10. Left knee replacement. RECOMMENDATIONS: We discussed treatment options with the patient. At this juncture, he feels medications are working reasonably well. He has taken the medication as prescribed. He is aware that opioid medications can become less effective over time because of development of tolerance. He is aware that certain people become addicted to these medications. He has not shown any signs of addiction. He is able to think clearly. He feels that these medications add to his ability to engage in activities with less pain and discomfort. A script for his medications of morphine 15 mg 1 p.o. b.i.d. has been rewritten. The patient will also continue with methadone 10 mg 1 [place] [address] PAIN MANAGEMENT CONSULTATION Name: CALVIN SLATER V [id number] Admission: 04/08/20 Attend Phys: Alexia Thomas MD Discharge: Date of : 36 Report #: [id number] We would like to thank you for letting us participate in his care. He will call us if he has any concerns. <ELECTRONICALLY SIGNED> By: Alexia Thomas MD 05/06/20 [id number] Thomas MD /nt
== END ==
LOC: M.PC 09:29
PROVIDERS: ATTEND Anesthesiology Pain Medicine
DX: M54.2 Cervicalgia (principal); M25.561 Pain in right knee

== ENCOUNTER → 2020-07-06 | Outpatient (CLI) | payer MEDICARE, OTHER | LOC: M.PC 09:39 | PROVIDERS: ATTEND Anesthesiology Pain Medicine | DX: M19.90 Unspecified osteoarthritis, unspecified site (principal); M54.12 Radiculopathy, cervical region; L30.9 Dermatitis, unspecified; E03.9 Hypothyroidism, unspecified; Z87.39 Personal history of other diseases of the musculoskeletal system and connective tissue; Z96.652 Presence of left artificial knee joint; Z86.19 Personal history of other infectious and parasitic diseases; Z88.8 Allergy status to other drugs, medicaments and biological substances; Z79.899 Other long term (current) drug therapy ==

== ENCOUNTER → 2020-08-31 | Outpatient (CLI) | payer MEDICARE, OTHER | LOC: M.PC 10:27 | PROVIDERS: ATTEND Anesthesiology Pain Medicine | DX: E03.9 Hypothyroidism, unspecified (principal); M50.10 Cervical disc disorder with radiculopathy, unspecified cervical region; M48.02 Spinal stenosis, cervical region; M10.9 Gout, unspecified; M19.90 Unspecified osteoarthritis, unspecified site; L30.9 Dermatitis, unspecified ==

== ENCOUNTER → 2020-10-28 | Outpatient (CLI) | payer MEDICARE, OTHER | LOC: M.PC 10-26 11:20 | PROVIDERS: ATTEND Anesthesiology Pain Medicine | DX: M54.12 Radiculopathy, cervical region (principal); M48.02 Spinal stenosis, cervical region; M25.551 Pain in right hip; E03.9 Hypothyroidism, unspecified; L30.9 Dermatitis, unspecified; M19.90 Unspecified osteoarthritis, unspecified site; M10.9 Gout, unspecified; Z96.652 Presence of left artificial knee joint ==

== ENCOUNTER → 2020-12-23 | Outpatient (CLI) | payer MEDICARE, OTHER | LOC: M.PC 10:26 | PROVIDERS: ATTEND Anesthesiology Pain Medicine | DX: E03.9 Hypothyroidism, unspecified (principal); L30.9 Dermatitis, unspecified; M19.90 Unspecified osteoarthritis, unspecified site; Z96.652 Presence of left artificial knee joint; Z87.39 Personal history of other diseases of the musculoskeletal system and connective tissue; Z79.891 Long term (current) use of opiate analgesic; Z79.899 Other long term (current) drug therapy ==

== ENCOUNTER → 2021-02-17 | Outpatient (CLI) | payer MEDICARE, OTHER | LOC: M.PC 10:07 | PROVIDERS: ATTEND Anesthesiology Pain Medicine | DX: G89.29 Other chronic pain (principal); M13.80 Other specified arthritis, unspecified site; M25.561 Pain in right knee; I10 Essential (primary) hypertension; M25.551 Pain in right hip; E03.9 Hypothyroidism, unspecified; M50.120 Mid-cervical disc disorder, unspecified level; M48.02 Spinal stenosis, cervical region; L30.9 Dermatitis, unspecified; Z96.652 Presence of left artificial knee joint; Z79.899 Other long term (current) drug therapy ==

== ENCOUNTER → 2021-04-21 | Outpatient (CLI) | payer MEDICARE, OTHER | LOC: M.PC 04-14 10:30 | PROVIDERS: ATTEND Anesthesiology Pain Medicine | DX: M50.20 Other cervical disc displacement, unspecified cervical region (principal); M25.559 Pain in unspecified hip; E03.9 Hypothyroidism, unspecified; I10 Essential (primary) hypertension; M19.90 Unspecified osteoarthritis, unspecified site; M10.9 Gout, unspecified; Z96.652 Presence of left artificial knee joint; M48.02 Spinal stenosis, cervical region; Z79.899 Other long term (current) drug therapy ==

== ENCOUNTER → 2021-06-14 | Outpatient (CLI) | payer MEDICARE, OTHER ==
[~2021-06-14] MED LIST changes: -ASPIR 8181 MG PO; +ASPIRIN EC325 MG PO
== END ==
LOC: M.PC 09:40
PROVIDERS: ATTEND Anesthesiology Pain Medicine
DX: M50.10 Cervical disc disorder with radiculopathy, unspecified cervical region (principal); M48.02 Spinal stenosis, cervical region; M19.91 Primary osteoarthritis, unspecified site; M25.559 Pain in unspecified hip; I10 Essential (primary) hypertension; L30.9 Dermatitis, unspecified; E03.9 Hypothyroidism, unspecified; Z96.652 Presence of left artificial knee joint; Z79.82 Long term (current) use of aspirin; Z79.899 Other long term (current) drug therapy